=== PATIENT | male | born 1950 | race African-American/Black ===

== ENCOUNTER 2024-04-04 11:58 | Inpatient (IN) ==
[2024-04-04] MEDS: ALBUT/IPRATROP 3MG/0.5MG NEB 3 ML VIAL INH STA (13:04)
[2024-04-04 13:26] LABS: Hemoglobin 10.4 g/dl (14.0-18.0); Mean Corpuscular Hemoglobin 32.7 pg (25.0-34.0); Mean Corpuscular Hgb Conc 32.5 g/dL (32.0-36.0); Mean Corpuscular Volume 100.6 fL (80.0-100.0); Mean Platelet Volume 10.8 fL (9.4-12.4); Platelet Count 130 K/uL (130-400); RDW Coefficient of Variation 12.7 % (11.5-14.5); RDW Standard Deviation 47.2 fL (36.4-46.3); Red Blood Count 3.18 M/uL (4.70-6.10)
[2024-04-04 13:31] LABS: Albumin Globulin Ratio 0.7 (0.9-2); BUN Creatinine Ratio 22.9 (10-20); Bilirubin,Total 0.6 mg/dl (0.2-1.0); Calcium 8.9 mg/dl (8.6-10.3); Creatinine Clr Calc Pharmacy 55.7 ml/min; Est GFR (African American) 80.7 ml/min; Est GFR (Non-African American) 69.6 ml/min; Globulin 4.2 gm/dl (2.5-4.0); Potassium 3.5 mmol/L (3.5-5.1); Total Protein 7.2 gm/dl (6.0-8.3)
[2024-04-04 13:35] LABS: Troponin I High Sensitivity 4.2 pg/ml (0-20)
[2024-04-04 13:40] LABS: INR 1.4 (0.9-1.1); Partial Thromboplastin Time 26 Seconds (21-31); Prothrombin Time 14.6 Seconds (9.0-12.0)
[2024-04-04] MEDS: OPTIRAY 320 125ml IV ONE (13:49)
--- NOTE | 2024-04-04 14:04 | Emergency Department Note ---
Impression & Plan LLL pneumonia, Hypoxia ED Provider Note Provider: Tamir Gómez MD DATE OF SERVICE: 04/04/2024 CHIEF COMPLAINT: Oxygen issues HISTORY OF PRESENT ILLNESS: Patient is a 73-year-old gentleman reported history of smoking and some asthma presenting here today reporting that he sent from the half-way for evaluation. He denies significant complaints. Denies feeling that short of breath except with movement. Reports that he has been more fatigued however. Information of the present decayed for the last 3 days has been on Levaquin with concerns for possible bronchitis or pneumonia and that his oxygen level was 84% today. Started on oxygen which is new. No chest pain reported. Denies significant abdominal pain or nausea or vomiting. No trauma reported although he does states that he might of passed out about a week ago. No leg swelling reported. PAST MEDICAL HISTORY: As noted above MEDICATIONS: Reviewed medication list SOCIAL HISTORY: Inmate at [facility] correctional institution PHYSICAL EXAM: GENERAL: alert and oriented in no acute distress on stretcher guards at bedside on nasal cannula oxygen Head: normocephalic and atraumatic EYES: No injection, discharge or icterus. EOMI. NECK: Trachea midline. Supple. ENT: Mucous membranes pink and moist. LUNGS: Airway patent. No retractions. Breath sounds clear anteriorly without significant wheezing appreciable HEART: Regular rate and rhythm. No chest wall tenderness ABDOMEN: Soft and non-tender, without guarding or rebound. SKIN: Acyanotic, warm, dry, without rashes EXTREMITIES: Without swelling, tenderness or deformity NEUROLOGICAL: No focal deficits. No aphasia. No facial droop or slurred speech. Normal strength and tone in the extremities. Sensation to gross touch normal. EK bpm sinus tachycardia. No PVC or PAC. No acute ST segment elevation or depression with a QTc of 416. CONTINUOUS CARDIAC MONITORING: was ordered and showed a heart rate of 90s-120s bpm in normal sinus rhythm to sinus tachycardia occasional PVC Patient's laboratory studies and imaging reviewed. Differential includes Reactive airway disease, pneumonia, pneumothorax, COPD, CHF, infections, cardiac ischemia, pulmonary embolism, musculoskeletal, gastrointestinal, as well as other pathologies. IMPRESSION/MEDICAL DECISION MAKING: Not significantly wheezy but given his history of reactive airway disease given a DuoNeb here. On 2 L of oxygen for supplementation. Has been on Levaquin for several days. Will exclude PE given his incarcerated status and lack of mobility. Blood work here with slight anemia of 10.4 with leukopenia of 2.1. No significant electrolyte abnormalities signs of renal dysfunction with normal troponin and EKG. Doubt ACS. Respiratory viral panel completed as well. Does report some fatigue. Benign abdomen on exam. No acute neurological deficits appreciable on exam. Chest x-ray and CT show what appeared to be a left lower lobe pneumonia. Given his hypoxia and lack of improvement on Levaquin, covered with Zosyn and believe further inpatient treatment is indicated. 2 L of IV fluid ordered but held additional to avoid fluid overload. Given his MRSA risk factors with incarceration, vancomycin ordered and discussed with the pharmacist. Advised him and half-way staff patient's need to be hospitalized given his hypoxia failing outpatient Levaquin. Hospitalist team was contacted. DIAGNOSIS: Hypoxia, left lower lobe pneumonia DISPOSITION: Hospitalist will evaluate Patient was agreeable with this plan. Past Med/Surg History Problem List (Updated 04/04/24 @ 15:21 by Bismark Jones MD) Asthma Bicytopenia Transaminitis Hypoxia (Acute) LLL pneumonia (Acute) Social History Smoking Status: Former smoker Tobacco Type: Cigarettes Preferred Language: Rwandan Feels Safe at Home: Yes Allergies Allergies Allergy/AdvReac Type Severity Reaction Status Date / Time erythromycin base Allergy Unknown Unknown Verified 04/04/24 15:06 OC SPRAY AdvReac Unknown USE OF OC Uncoded 04/04/24 15:06 SPRAY IS CONTRAINDICATED Home Meds Home Medications Medication Instructions Recorded Confirmed albuterol sulfate 90 mcg/actuation 2 puff inhalation QID PRN 04/04/24 04/04/24 aerosol inhaler Shortness Of Breath ciclesonide 160 mcg/actuation 1 puff inhalation BID 04/04/24 04/04/24 aerosol inhaler (Alvesco) levofloxacin 750 mg tablet 750 mg PO DAILY 04/04/24 04/04/24 lisinopril 5 mg tablet 5 mg PO DAILY 04/04/24 04/04/24 rosuvastatin 10 mg tablet 10 mg PO DAILY 04/04/24 04/04/24 Results & Data (ED) Vital Signs Vital Signs - 24 hr 04/04/24 12:06 04/04/24 12:04/04/24 12:20 Temperature 37.3 C Temperature Source Oral Pulse Rate 111 H 109 H Pulse Rate [Right Finger] Pulse Rhythm Regular Pulse Strength Normal Respiratory Rate 20 Respiratory Effort / Characteristics Non-Labored Spontaneous Respiratory Depth Normal Respiratory Pattern Regular Blood Pressure 121/101 H Blood Pressure [Right Arm] Blood Pressure Mean 107 Blood Pressure Mean [Right Arm] Blood Pressure Position Sitting Pulse Oximetry 86 L 96 Oxygen Delivery Method Room Air Nasal Cannula Oxygen Flow Rate 4 Sepsis Recent Fever Within 48 Hours No Sepsis New/Unexplained Change in Mental Status No Sepsis Action Taken by Nursing No Action Required 04/04/24 12:54 04/04/24 14:08 Temperature Temperature Source Pulse Rate 98 H Pulse Rate [Right Finger] 98 H Pulse Rhythm Pulse Strength Respiratory Rate 20 Respiratory Effort / Characteristics Respiratory Depth Respiratory Pattern Blood Pressure Blood Pressure [Right Arm] 132/78 Blood Pressure Mean Blood Pressure Mean [Right Arm] 96 Blood Pressure Position Pulse Oximetry 97 Oxygen Delivery Method Nasal Cannula Nasal Cannula Oxygen Flow Rate 2 4 Sepsis Recent Fever Within 48 Hours Sepsis New/Unexplained Change in Mental Status Sepsis Action Taken by Nursing Laboratory Data 04/04/24 12:11 04/04/24 12:11 Lab Results 04/04/24 04/04/24 04/04/24 Range/Units 12:11 13:05 15:39 WBC 2.10 L (4.8-10.8) K/ul RBC 3.18 L (4.70-6.10) M/uL Hgb 10.4 L (14.0-18.0) g/dl Hct 32.0 L (42.0-52.0) % MCV 100.6 H (80.0-100.0) fL MCH 32.7 (25.0-34.0) pg MCHC 32.5 (32.0-36.0) g/dL RDW Std Deviation 47.2 H (36.4-46.3) fL RDW Coeff of January 12.7 (11.5-14.5) % Plt Count 130 (130-400) K/uL MPV 10.8 (9.4-12.4) fL Immature Gran % (Auto) 0.5 % Neut % (Auto) 51.8 % Lymph % (Auto) 42.4 % [place] % (Auto) 4.8 % Eos % (Auto) 0.5 % Baso % (Auto) 0.0 % Neut # (Auto) 1.09 L (1.40-6.50) K/uL Lymph # (Auto) 0.89 L (1.20-3.40) K/uL [place] # (Auto) 0.10 L (0.11-0.59) K/uL Eos # (Auto) 0.01 (0.00-0.50) K/uL Baso # (Auto) 0.00 (0.00-0.20) K/uL Immature Gran # (Auto) 0.01 (0.01-0.20) K/uL PT 14.6 H (9.0-12.0) Seconds INR 1.4 H (0.9-1.1) APTT 26 (21-31) Seconds PTT Ratio 1.0 Sodium 138 (136-145) mmol/L Potassium 3.5 (3.5-5.1) mmol/L Chloride 98 (98-107) mmol/L Carbon Dioxide 31 (21-32) mmol/L Anion Gap 9 (3-11) BUN 24 H (6-23) mg/dl Creatinine 1.05 (0.6-1.4) mg/dl Est Cr Clr Drug Dosing 55.7 ml/min Est GFR ( Amer) 80.7 ml/min Est GFR (Non-Af Amer) 69.6 ml/min BUN/Creatinine Ratio 22.9 H (10-20) Glucose 137 H (70-99(Fasting)) mg/dl Lactate 1.6 (0.4-2.0) mmol/L Calcium 8.9 (8.6-10.3) mg/dl Magnesium 2.0 (1.7-2.4) mg/dl Total Bilirubin 0.6 (0.2-1.0) mg/dl AST 50 H (13-39) U/L ALT 53 H (7-52) U/L Alkaline Phosphatase 89 (34-104) U/L Troponin I High Sens 4.2 (0-20) pg/ml C-Reactive Protein 28.00 H (0-0.5) mg/dl Total Protein 7.2 (6.0-8.3) gm/dl Albumin 3.0 L (3.4-5.0) gm/dl Globulin 4.2 H (2.5-4.0) gm/dl Albumin/Globulin Ratio 0.7 L (0.9-2) Adenovirus (PCR) Not Detected (NotDetected) Anaplasma Smear See Comment Babesia Smear See Comment B. pertussis DNA (PCR) Not Detected (NotDetected) B.parapertussis DNA PCR Not Detected (NotDetected) C. pneumoniae DNA (PCR) Not Detected (NotDetected) Coronavirus OC43 (PCR) Not Detected (NotDetected) Coronavirus HKU1 (PCR) Not Detected (NotDetected) Coronavirus 229E (PCR) Not Detected (NotDetected) SARS-CoV-2 (PCR) Not Detected (NotDetected) Coronavirus NL63 (PCR) Not Detected (NotDetected) Human Metapneumovir PCR Not Detected (NotDetected) Influenza Type A (PCR) Not Detected (NotDetected) Influenza Type B (PCR) Not Detected (NotDetected) M. pneumoniae (PCR) Not Detected (NotDetected) Parainfluenza 1 (PCR) Not Detected (NotDetected) Parainfluenza 2 (PCR) Not Detected (NotDetected) Parainfluenza 3 (PCR) Not Detected (NotDetected) Parainfluenza 4 (PCR) Not Detected (NotDetected) RSV (PCR) Not Detected (NotDetected) Entero/Rhino (PCR) Not Detected (NotDetected) Administered Medications Vancomycin HCl 1,500 mg/ (Sodium Chloride) 530 mls @ 200 mls/hr IV NOW ONE Stop: 04/04/24 17:15 Last Admin: 04/04/24 15:47 Dose: 200 mls/hr Documented By: ALEYDA Discontinued Medications Albuterol (Albut/Ipratrop 3mg/0.5mg Neb 3 Ml Vial) 3 ml INH NOW STA Stop: 04/04/24 12:55 Last Admin: 04/04/24 13:04 Dose: 3 ml Documented By: MNEwa Piperacillin Sod/Tazobactam Sod (Zosyn) 4.5 gm in 100 mls @ 200 mls/hr IV NOW ONE Stop: 04/04/24 14:33 Last Infusion: 04/04/24 16:42 Dose: Infused Documented By: Admin: 04/04/24 15:47 Dose: 200 mls/hr Documented By: ALEYDA Ioversol (Optiray 320 125ml) 112 ml IV ONCE ONE Stop: 04/04/24 13:49 Last Admin: 04/04/24 13:49 Dose: 112 ml Documented By: VITO Imaging Data Radiologist's Impression: Chest X-Ray 04/04/24 12:54 SINGLE VIEW CHEST CLINICAL HISTORY: Dyspnea. Hypoxia. FINDINGS: An AP, portable, upright chest radiograph is compared to study dated 01/23/2024. The heart is enlarged noting atherosclerotic calcification of the thoracic aorta. The pulmonary vasculature is none congestive. Airspace consolidation is seen at the left lung base. There is atelectasis at the right lung base. There is a small left pleural effusion. No pneumothorax is seen. The skeletal structures are osteopenic. The bony thorax is grossly intact. Arthritic change is seen in the shoulders. IMPRESSION: 1. Left basilar consolidation his typical for pneumonia/aspiration pneumonitis. Clinical correlation required and radiographic follow-up to resolution is recommended. 2. Cardiomegaly without radiographic evidence of congestive failure. 3. Small left pleural effusion. ACT 112: Negative or not required by law. Electronically signed by: Matthew Dillard M.D. 04/04/2024 2:02 PM Chest CTA 04/04/24 12:55 CT angio chest PE protocol CT DOSE: 698.83 mGy.cm HISTORY: 73 years-old Male with PE, hypoxia, tachy, prisoner. Acute shortness of breath TECHNIQUE: Multiple CTA images of the chest were obtained after the intravenous administration of Optiray. Coronal and sagittal MIPS were obtained from the axial data set and were submitted for review. All measurements were obtained according to NASCET criteria. A dose lowering technique was utilized adhering to the principles of ALARA. COMPARISON: Chest radiograph of same day FINDINGS: CTA: The heart is normal in size without pericardial effusion. Extensive coronary artery calcifications. Unremarkable thoracic aorta. No pulmonary emboli identified. CT CHEST: Thyroid goiter with superior mediastinal extension measuring up to 2.8 cm. Borderline enlarged mediastinal and hilar lymph nodes. Trace right and small left pleural effusions. No pneumothorax. Emphysema. Dense left lower lobe airspace consolidation with less pronounced groundglass and consolidative left upper lobe opacities. No acute upper abdominal abnormality. No acute fracture. IMPRESSION: 1. No pulmonary emboli identified. 2. Left lung pneumonia is most pronounced throughout the left lower lobe. 3. Trace right and small left pleural effusions. 4. Mild mediastinal and hilar lymphadenopathy. ACT 112: Negative or not required by law. The above report was generated using voice recognition software. It may contain grammatical, syntax or spelling errors. Electronically signed by: Darrel Herndon M.D. 04/04/2024 2:44 PM Discharge Plan Visit Data Chief Complaint: Shortness of Breath/Dyspnea Stated Complaint: SOB on exertion ED Provider: Tamir Gómez Discharge Problem: LLL pneumonia, Hypoxia Patient Disposition: Being Evaluated by Hospitalist Forms Stand Alone Forms: My [facility] Prescriptions Prescriptions: No Action albuterol sulfate 90 mcg/actuation Hfa Aerosol Inhaler 2 puff INHALATION QID PRN (Reason: Shortness Of Breath) rosuvastatin 10 mg Tablet 10 mg PO DAILY lisinopril 5 mg Tablet 5 mg PO DAILY levofloxacin 750 mg Tablet 750 mg PO DAILY Rx Instructions: LAST DOSE TO BE 04/08/24 Alvesco 160 mcg/actuation Hfa Aerosol Inhaler 1 puff INHALATION BID Referrals Referrals: Dahiana NATION [Primary Care Provider] - Discharge Problem: LLL pneumonia Qualifiers: Pneumonia type: due to unspecified organism Qualified Code(s): J18.9 - Pneumonia, unspecified organism
--- NOTE | 2024-04-04 14:04 | XRay Report ---
SINGLE VIEW CHEST CLINICAL HISTORY: Dyspnea. Hypoxia. FINDINGS: An AP, portable, upright chest radiograph is compared to study dated 01/23/2024. The heart i s enlarged noting atherosclerotic calcification of the thoracic aorta. The pulmonary vasculature is n one congestive. Airspace consolidation is seen at the left lung base. There is atelectasis at the rig ht lung base. There is a small left pleural effusion. No pneumothorax is seen. The skeletal structure s are osteopenic. The bony thorax is grossly intact. Arthritic change is seen in the shoulders. IMPRESSION: 1. Left basilar consolidation his typical for pneumonia/aspiration pneumonitis. Clinical correlation required and radiographic follow-up to resolution is recommended. 2. Cardiomegaly without radiographic evidence of congestive failure. 3. Small left pleural effusion. ACT 112: Negative or not required by law. Electronically signed by: Matthew Dillard M.D. 04/04/2024 2:02 PM
[2024-04-04 14:10] LABS: Adenovirus PCR Not Detected (NotDetected); Bordetella parapertussis PCR Not Detected (NotDetected); Bordetella pertussis PCR Not Detected (NotDetected); Chlamydia pneumoniae PCR Not Detected (NotDetected); Coronavirus 229E PCR Not Detected (NotDetected); Coronavirus CoV-2 (COVID19)PCR Not Detected (NotDetected); Coronavirus HKU1 PCR Not Detected (NotDetected); Coronavirus NL63 PCR Not Detected (NotDetected); Coronavirus OC43PCR Not Detected (NotDetected); Human Metapneumovirus PCR Not Detected (NotDetected); Influenza A PCR Not Detected (NotDetected); Influenza B PCR Not Detected (NotDetected); Mycoplasma pneumoniae PCR Not Detected (NotDetected); Parainfluenza Virus 1 PCR Not Detected (NotDetected); Parainfluenza Virus 2 PCR Not Detected (NotDetected); Parainfluenza Virus 3 PCR Not Detected (NotDetected); Parainfluenza Virus 4 PCR Not Detected (NotDetected); Respiratory Syncytial VirusPCR Not Detected (NotDetected); Rhinovirus/Enterovirus PCR Not Detected (NotDetected)
[2024-04-04 14:24] LABS: Eosinophils # (auto) 0.01 K/uL (0.00-0.50); Eosinophils % (auto) 0.5 %; Immature Granulocytes # (auto) 0.01 K/uL (0.01-0.20); Immature Granulocytes % (auto) 0.5 %; Lymphocytes # (auto) 0.89 K/uL (1.20-3.40); Lymphocytes % (auto) 42.4 %; Monocytes % (auto) 4.8 %; Neutrophils # (auto) 1.09 K/uL (1.40-6.50); Neutrophils % (auto) 51.8 %
[2024-04-04] MEDS ORDERED: VANCOMYCIN CONSULT ACTIVE PRN ×2 (14:37→20:36)
--- NOTE | 2024-04-04 14:46 | CT Scan Report ---
CT angio chest PE protocol CT DOSE: 698.83 mGy.cm HISTORY: 73 years-old Male with PE, hypoxia, tachy, prisoner. Acute shortness of breath TECHNIQUE: Multiple CTA images of the chest were obtained after the intravenous administration of Opt iray. Coronal and sagittal MIPS were obtained from the axial data set and were submitted for review. All measurements were obtained according to NASCET criteria. A dose lowering technique was utilized adhering to the principles of ALARA. COMPARISON: Chest radiograph of same day FINDINGS: CTA: The heart is normal in size without pericardial effusion. Extensive coronary artery calcifications. U nremarkable thoracic aorta. No pulmonary emboli identified. CT CHEST: Thyroid goiter with superior mediastinal extension measuring up to 2.8 cm. Borderline enlarged medias tinal and hilar lymph nodes. Trace right and small left pleural effusions. No pneumothorax. Emphysema . Dense left lower lobe airspace consolidation with less pronounced groundglass and consolidative lef t upper lobe opacities. No acute upper abdominal abnormality. No acute fracture. IMPRESSION: 1. No pulmonary emboli identified. 2. Left lung pneumonia is most pronounced throughout the left lower lobe. 3. Trace right and small left pleural effusions. 4. Mild mediastinal and hilar lymphadenopathy. ACT 112: Negative or not required by law. The above report was generated using voice recognition software. It may contain grammatical, syntax o r spelling errors. Electronically signed by: Darrel Herndon M.D. 04/04/2024 2:44 PM
--- NOTE | 2024-04-04 14:55 | History & Physical Report ---
Date of Service April 04, 2024 Assessment & Plan (1) LLL pneumonia: Plan: Left lower lobe pneumonia Chest x-ray with left lower lobe consolidation, trace effusion CTA: No pulmonary emboli, left lung pneumonia redemonstrated. Trace right and small left pleural effusions. No pulmonary edema. Mild mediastinal and hilar lymphadenopathy DDx includes aspiration pneumonia, community-acquired pneumonia Was on Levaquin last 3 days as outpatient without improvement. Given Zosyn/vancomycin in the ER Transition to cefepime/Flagyl/vancomycin on admission. If MRSA nares returned negative may discontinue vancomycin Sputum culture ordered Blood cultures pending (2) Transaminitis: Plan: Transaminitis New from prior. Prior record review notes a history of C virus in 2015. Patient reports that he did not require treatment for this and thinks it went away. Denies history of cirrhosis Repeat hepatitis serology pending Tick panel pending as above. If clinical suspicion increases, may add empiric doxy; however low risk for tick exposure and is at SCI. - Statin held (3) Bicytopenia: Plan: Bicytopenia Also with leukopenia, mildly worsened anemia. Platelet count normal. Absolute neutrophil count 1.09, leukocyte count 0.89 Tick serology and Anaplasma added. Respiratory bio fire is negative HIV/hepatitis panel pending Denies bleeding/rash. Denies history of bicytopenia/anemia (4) Asthma: Plan: Hx asthma No wheezing at time of bedside exam. Patient denies recent wheezing and feels his asthma has been well-controlled Continue Alvesco/formulary equivalent DuoNebs as needed Steroids not currently indicated Plan DVT prophylaxis: Lovenox Disposition: Medical/surgical CODE STATUS: Full code Diet: Heart healthy History of Present Illness Primary Care Provider: RIOS Talbot Silvia Kaiser is a 73-year-old male with past medical history of hep C, moderate persistent asthma, hyperlipidemia, allergic rhinitis, hypertension, CKD, adjustment disorder with depression who presents with worsened shortness of breath and hypoxia. Outpatient med review her SCI: Alvesco twice daily, lisinopril 5 mg daily, rosuvastatin 10 mg daily, albuterol as needed. Presents to the ER with wheezing, shortness of breath, and increased fatigue over the last week. Has been on levofloxacin x 3 days but continues to feel poorly and was hypoxic to 84% at the present today. No prior oxygen requirement. Patient is recommended for admission for community-acquired pneumonia with increased risk of MRSA due to incarceration and failure to improve on outpatient Levaquin. Pt reports tired, but OK. [facility] referred for hypoxia. No fevers or chills. No night sweats +cough intermittently. Productive initially for clear pghlem, has not been productive last day or two No wheezing Feels his asthma is actually 'doing OK.' No abdominal pain. No diarrhea/constipation. Appetite poor, has some trouble with [employer] food. No aspiration events to his knowledge. Denies history of liver problems, but thinks he had a history of hepatitis 'I beat it'. Thinks this was back in 1991. No history of cirrhosis. Not sure how he was exposed. No history of cancer. Denies history of blood disorders, strokes, heart attacks, blood clots. NKDA. thinks he allergic to some antibiotic but no rash, difficult breathing. Does not remember the name Medical History: Reviewed Medications: Reviewed Surgical History: Reviewed Family history: Reviewed Allergies: Reviewed Social History: Reviewed. Endorses marijuana use, Denies history of drug and needle use. Denies vaping/tobacco use. Quit smoking when [facility] stopped selling cigarettes Code Status: Full Code Allergies Allergy/AdvReac Type Severity Reaction Status Date / Time erythromycin base Allergy Unknown Unknown Verified 04/04/24 15:06 OC SPRAY AdvReac Unknown USE OF OC Uncoded 04/04/24 15:06 SPRAY IS CONTRAINDICATED Home Medications Medication Instructions Recorded Confirmed Type albuterol sulfate 90 mcg/actuation 2 puff inhalation QID PRN 04/04/24 04/04/24 History aerosol inhaler Shortness Of Breath ciclesonide 160 mcg/actuation 1 puff inhalation BID 04/04/24 04/04/24 History aerosol inhaler (Alvesco) levofloxacin 750 mg tablet 750 mg PO DAILY 04/04/24 04/04/24 History lisinopril 5 mg tablet 5 mg PO DAILY 04/04/24 04/04/24 History rosuvastatin 10 mg tablet 10 mg PO DAILY 04/04/24 04/04/24 History Past Med/Surg History Problem List (Updated 04/04/24 @ 15:21 by Bismark Jones MD) Asthma Bicytopenia Transaminitis Hypoxia (Acute) LLL pneumonia (Acute) Social History Smoking Status: Former smoker Tobacco Type: Cigarettes Preferred Language: Angolan Feels Safe at Home: Yes Physical Exam Physical Exam: General: A&Ox3. NAD. Cooperative. HEENT: Atraumatic, normocephalic. Vision/hearing intact. Poor dentition. PERLAA Pulm: LLL crackles/coarse. No wheezing. Symmetrical chest rise. No increased work of breathing. No respiratory distress. Cardiac: RRR, -mrg. Radial pulses intact and symmetrical. Abdominal: Nontender, nondistended, soft. BS present. Ext: warm, dry. Moves all extremities equally. Sensationto soft touch intact in hands and feet. Radiation Therapy Technologist, ankle doriflexion/plantarflexion 5/5 bilat. Results & Data Results & Data Vital Signs (Past 12 Hours) Vital Signs Temp Pulse Pulse Resp BP BP Pulse Ox 04/04/24 14:08 98 H 20 132/78 04/04/24 12:54 98 H 97 04/04/24 12:20 96 04/04/24 12:09 37.3 C 109 H 20 121/101 H 86 L 04/04/24 12:06 111 H O2 Del Method O2 Flow Rate 04/04/24 14:08 Nasal Cannula 4 04/04/24 12:54 Nasal Cannula 2 04/04/24 12:20 Nasal Cannula 4 04/04/24 12:09 Room Air 04/04/24 12:06 PG Care Time/CCT Total # of Minutes Spent Total Time Spent with Patient: Total time spent is greater than 50% in coordination of care (as documented) at patient's floor/unit and/or counseling patient: Coding Level of Care Code 58077 INT INP/OBS CARE 3/75MIN Diagnoses LLL pneumonia J18.9 Pneumonia type: due to unspecified organism Transaminitis R74.01 Bicytopenia D75.89 Asthma J45.909 (1) LLL pneumonia Pneumonia type: due to unspecified organism Qualified Code(s): J18.9 - Pneumonia, unspecified organism
[2024-04-04] MEDS: VANCOMYCIN HCL 1,500 MG in SODIUM CHLORIDE 0.9% 500 ML IV ONE (15:47)
[2024-04-04] MEDS: PIPERACILLIN/TAZOBACTAM 4.5 GM/100 ML BAG IV ONE (15:47)
--- NOTE | 2024-04-04 16:02 | Electrocardiogram Report ---
Test Reason : Blood Pressure : / mmHG Vent. Rate : 110 BPM Atrial Rate : 110 BPM P-R Int : 122 ms QRS Dur : 092 ms QT Int : 308 ms P-R-T Axes : 044 000 068 degrees QTc Int : 416 ms Sinus tachycardia Otherwise normal ECG When compared with ECG of 23-JAN-2024 10:08, No significant change was found Confirmed by Karthik El ([id number]) on 04/04/2024 4:01:56 PM Referred By: [facility] Confirmed By:Vega El
[2024-04-04 17:08] LABS: HIV 4th Gen(HIV 1,2 AB+p24 Ag Negative (Negative)
[2024-04-04 17:15] LABS: HepB Surface Ag with confirm Negative (Negative); Lyme Screen Rflx Confirmation Negative (Negative)
[2024-04-04 17:19] LABS: HepC Ab Rflx HepCQuant RNA Negative (Negative)
[2024-04-04 17:51] LABS: Procalcitonin 0.57 ng/ml (0-0.5)
[2024-04-04] MEDS ORDERED: ACETAMINOPHEN 325 MG TAB PO PRN (20:36)
[2024-04-04] MEDS ORDERED: ALBUTEROL HFA 8 GM INHALER INH PRN (20:36)
[2024-04-04] MEDS: metroNIDAZOLE 500 MG/100 ML BAG IV SCH (21:45)
[2024-04-04] MEDS: CEFEPIME 2,000 MG in SYRINGE 0 ML IV SCH (21:45)
[2024-04-04] MEDS: ENOXAPARIN INJ 40 MG/0.4 ML SYR SQ SCH (21:45)
[2024-04-05] MEDS ORDERED: VANCOMYCIN HCL 1,250 MG in SODIUM CHLORIDE 0.9% 500 ML IV SCH (03:15)
[2024-04-05 06:04] LABS: Appearance Urine Clear (Clear); Bacteria Urine Automated None Seen (None Seen); Bilirubin Urine Negative (Negative); Blood Urine Negative (Negative); Cast Urine Automated 0-2 /lpf (0-2); Color Urine Yellow; Glucose Urine UA Negative (Negative); Ketones Urine Trace (Negative); Leukocyte Esterase Urine Negative (Negative); Nitrite Urine Negative (Negative); Protein Urine 1+ (Negative); RBC Urine Automated 0-2 /hpf (0-2); Specific Gravity Urine > 1.045 (1.000-1.030); Urobilinogen Urine Negative (Negative); WBC Urine Automated 0-5 /hpf (0-5); pH Urine 5.5 (4.5-7.5)
[2024-04-05 07:13] LABS: Hematocrit (blood only) 29.1 % (42.0-52.0); Hemoglobin 9.6 g/dl (14.0-18.0); Mean Corpuscular Hemoglobin 33.2 pg (25.0-34.0); Mean Corpuscular Volume 100.7 fL (80.0-100.0); Platelet Count 126 K/uL (130-400); RDW Coefficient of Variation 12.8 % (11.5-14.5); Red Blood Count 2.89 M/uL (4.70-6.10); White Blood Count 2.08 K/ul (4.8-10.8)
[2024-04-05 07:15] LABS: Albumin Globulin Ratio 0.8 (0.9-2); Albumin Level 2.8 gm/dl (3.4-5.0); BUN Creatinine Ratio 19.7 (10-20); Bilirubin,Total 0.5 mg/dl (0.2-1.0); C Reactive Protein 21.22 mg/dl (0-0.5); Calcium 8.6 mg/dl (8.6-10.3); Creatinine Clr Calc Pharmacy 47.9 ml/min; Est GFR (African American) 67.3 ml/min; Globulin 3.7 gm/dl (2.5-4.0); Potassium 3.8 mmol/L (3.5-5.1); Total Protein 6.5 gm/dl (6.0-8.3)
[2024-04-05] MEDS ORDERED: VANCOMYCIN HCL 1,000 MG in SODIUM CHLORIDE 0.9% 250 ML IV SCH (08:00)
--- NOTE | 2024-04-05 08:19 | Hospitalist Progress Note ---
Date of Service April 05, 2024 Assessment & Plan (1) LLL pneumonia: Plan: Left lower lobe pneumonia-pancytopenicneutropenia Chest x-ray with left lower lobe consolidation, trace effusion CTA: No pulmonary emboli, left lung pneumonia re-demonstrated. Trace right and small left pleural effusions. No pulmonary edema. Mild mediastinal and hilar lymphadenopathy Was on Levaquin x 3 days prior to presentation. Given Zosyn/vancomycin in the ER Transition to Cefepime/Flagyl MRSA nares returned negative -> discontinue vancomycin Sputum culture ordered urine Legionella antigen sent Blood cultures pending Respiratory biofire negative, Tic borne screen negative, Certainly on nontypical presentation with the patient being hypoxic without a lot of coughing and no preceding symptoms other than syncope Is at risk for malignancy given his smoking history although does not look classic for malignancy Will follow for resolution likely repeat imaging will be required (2) Transaminitis: Plan: Transaminitis Prior record review notes a history of C virus in 2014. Patient reports that he did not require treatment for this and thinks it went away. Denies history of cirrhosis Repeat hepatitis serology pending - Statin held (3) Asthma: Plan: Hx asthma stable no wheezing at this time Continue Alvesco/formulary equivalent DuoNebs as needed Steroids not currently indicated Plan DVT prophylaxis: Lovenox CODE STATUS: Full code Admission and Anticipated Discharge Date Admission Date: April 04, 2024 Subjective pt is feeling better, little cough, former smoker Pt states he has no symptoms until he was walking and fell over. Has imaging suggestive of LLL pneumonia, and clinical exam with absent breath sounds Physical Exam Physical Exam: Patient awake alert no distress requiring oxygen supplementation Card exam is regular without murmurs Lung exam with decreased breath sounds and dullness at the left base no egophony Extremities are without edema Results & Data Results & Data Vital Signs (Past 12 Hours) Vital Signs Temp Pulse Resp BP Pulse Ox O2 Del Method O2 Flow Rate 04/05/24 07:37 Nasal Cannula 2 04/05/24 07:00 98.4 F 89 16 118/69 95 Room Air 04/04/24 20:30 Nasal Cannula 2 04/04/24 20:30 98.4 F 107 H 18 151/73 H 96 Nasal Cannula 2 Laboratory Results Reviewed CBC reviewed chemistry PG Care Time/CCT Total # of Minutes Spent Total Time Spent with Patient: Total time spent is greater than 50% in coordination of care (as documented) at patient's floor/unit and/or counseling patient: Coding Level of Care Code 74994 SUB INP/OBS CARE 350MIN Diagnoses LLL pneumonia J18.9 Pneumonia type: due to unspecified organism Transaminitis R74.01 Asthma J45.909 (1) LLL pneumonia Pneumonia type: due to unspecified organism Qualified Code(s): J18.9 - Pneumonia, unspecified organism
[2024-04-05 08:45] LABS: Basophils # (auto) 0.01 K/uL (0.00-0.20); Basophils % (auto) 0.5 %; Eosinophils # (auto) 0.01 K/uL (0.00-0.50); Eosinophils % (auto) 0.5 %; Immature Granulocytes # (auto) 0.02 K/uL (0.01-0.20); Lymphocytes # (auto) 1.15 K/uL (1.20-3.40); Lymphocytes % (auto) 55.3 %; Monocytes # (auto) 0.08 K/uL (0.11-0.59); Monocytes % (auto) 3.8 %; Neutrophils # (auto) 0.81 K/uL (1.40-6.50); Neutrophils % (auto) 38.9 %
[2024-04-05] MEDS: FLUTICASONE FUROATE 200MCG 14 PUFFS/INHALER INH SCH (09:18)
[2024-04-05] MEDS: lisinopril 5 MG TAB PO SCH (09:19)
[2024-04-06 08:21] LABS: Hematocrit (blood only) 26.7 % (42.0-52.0); Hemoglobin 8.6 g/dl (14.0-18.0); Mean Corpuscular Hemoglobin 32.7 pg (25.0-34.0); Mean Corpuscular Hgb Conc 32.2 g/dL (32.0-36.0); Mean Corpuscular Volume 101.5 fL (80.0-100.0); Mean Platelet Volume 11.3 fL (9.4-12.4); Platelet Count 146 K/uL (130-400); RDW Coefficient of Variation 12.6 % (11.5-14.5); RDW Standard Deviation 47.4 fL (36.4-46.3); Red Blood Count 2.63 M/uL (4.70-6.10); White Blood Count 1.86 K/ul (4.8-10.8)
[2024-04-06 08:46] LABS: Basophils # (auto) 0.01 K/uL (0.00-0.20); Basophils % (auto) 0.5 %; Eosinophils # (auto) 0.01 K/uL (0.00-0.50); Eosinophils % (auto) 0.5 %; Immature Granulocytes # (auto) 0.01 K/uL (0.01-0.20); Immature Granulocytes % (auto) 0.5 %; Lymphocytes # (auto) 0.98 K/uL (1.20-3.40); Lymphocytes % (auto) 52.7 %; Monocytes # (auto) 0.09 K/uL (0.11-0.59); Monocytes % (auto) 4.8 %; Neutrophils # (auto) 0.76 K/uL (1.40-6.50)
[2024-04-06 09:01] LABS: Alanine Aminotransferase 36 U/L (7-52); Albumin Globulin Ratio 0.7 (0.9-2); Albumin Level 2.6 gm/dl (3.4-5.0); Alkaline Phosphatase 72 U/L (34-104); Anion Gap 4 (3-11); Aspartate Aminotransferase 32 U/L (13-39); BUN Creatinine Ratio 20.8 (10-20); Bilirubin,Total 0.5 mg/dl (0.2-1.0); Blood Urea Nitrogen 25 mg/dl (6-23); Calcium 8.4 mg/dl (8.6-10.3); Carbon Dioxide 32 mmol/L (21-32); Chloride 103 mmol/L (98-107); Creatinine Clr Calc Pharmacy 48.7 ml/min; Est GFR (African American) 68.6 ml/min; Est GFR (Non-African American) 59.2 ml/min; Globulin 3.5 gm/dl (2.5-4.0); Glucose 110 mg/dl (70-99(Fasting)); Potassium 3.5 mmol/L (3.5-5.1); Sodium 139 mmol/L (136-145); Total Protein 6.1 gm/dl (6.0-8.3)
[2024-04-06 09:16] LABS: Thyroid Stimulating Hormone 2.796 uIu/ml (0.300-4.500)
[2024-04-06 10:02] LABS: Iron 85 mcg/dl (35-175); Unsaturated Iron Binding Cap < 55 mcg/dl (155-355)
[2024-04-06 10:45] LABS: Folate (Folic Acid),Ser orPlas 15.77 ng/ml (>5.38)
--- NOTE | 2024-04-06 16:11 | Hospitalist Progress Note ---
Date of Service April 06, 2024 Assessment & Plan (1) LLL pneumonia: Plan: Left lower lobe pneumonia-pancytopenicneutropenia Chest x-ray with left lower lobe consolidation, trace effusion CTA: No pulmonary emboli, left lung pneumonia re-demonstrated. Trace right and small left pleural effusions. No pulmonary edema. Mild mediastinal and hilar lymphadenopathy Was on Levaquin x 3 days prior to presentation. Given Zosyn/vancomycin in the ER Transition to Cefepime/Flagyl MRSA nares returned negative -> discontinue vancomycin Sputum culture ordered urine Legionella antigen sent(pending) Blood cultures negative, sputum with few gram negatives seen Respiratory biofire negative, Tic borne screen negative, Certainly on nontypical presentation with the patient being hypoxic without a lot of coughing and no preceding symptoms other than syncope Is at risk for malignancy given his smoking history although does not look classic for malignancy Will follow for resolution likely repeat imaging will be required after dischar ge (2) Pancytopenia: Plan: Pt remains with all cell lines down, neutropenic did check B12,folate, tsh, no atypical cell seen maybe due to infection if it does not rebound may consider heme onc eval (3) Transaminitis: Plan: Transaminitis-resolved Prior record review notes a history of C virus in 2015. Patient reports that he did not require treatment for this and thinks it went away. Denies history of cirrhosis Repeat hepatitis serology pending - Statin held (4) Asthma: Plan: Hx asthma stable no wheezing at this time Continue Alvesco/formulary equivalent DuoNebs as needed Steroids not currently indicated Plan DVT prophylaxis: Lovenox CODE STATUS: Full code Admission and Anticipated Discharge Date Admission Date: April 04, 2024 Subjective pt continues to feel better, now on room air, former smoker Pt states he has no symptoms until he was walking and fell over. Has imaging and exam suggestive of LLL pneumonia likely if pneumonia and pancytopenia improve, he maybe able to return to custodial Physical Exam Physical Exam: Patient awake alert no distress requiring oxygen supplementation Card exam is regular without murmurs Lung exam with decreased breath sounds and dullness at the left base Extremities are without edema Results & Data Results & Data Vital Signs (Past 12 Hours) Vital Signs Temp Pulse Resp BP Pulse Ox O2 Del Method O2 Flow Rate 04/06/24 15:45 18 93 Room Air 04/06/24 15:24 97.9 F 96 H 18 148/72 H 92 Room Air 04/06/24 08:07 Nasal Cannula 1 04/06/24 07:54 97.7 F 88 18 137/74 95 Nasal Cannula 1 Laboratory Results review cbc iron, B12, folate, thyroid chemistry PG Care Time/CCT Total # of Minutes Spent Total Time Spent with Patient: Total time spent is greater than 50% in coordination of care (as documented) at patient's floor/unit and/or counseling patient: Coding Level of Care Code 34603 SUB INP/OBS CARE 2/35MIN Diagnoses LLL pneumonia J18.9 Pneumonia type: due to unspecified organism Pancytopenia D61.818 Transaminitis R74.01 Asthma J45.909 (1) LLL pneumonia Pneumonia type: due to unspecified organism Qualified Code(s): J18.9 - Pneumonia, unspecified organism
[2024-04-07 06:54] LABS: Hematocrit (blood only) 25.3 % (42.0-52.0); Hemoglobin 8.2 g/dl (14.0-18.0); Mean Corpuscular Hemoglobin 32.8 pg (25.0-34.0); Mean Corpuscular Hgb Conc 32.4 g/dL (32.0-36.0); Mean Corpuscular Volume 101.2 fL (80.0-100.0); Mean Platelet Volume 10.9 fL (9.4-12.4); Platelet Count 153 K/uL (130-400); RDW Coefficient of Variation 12.5 % (11.5-14.5); RDW Standard Deviation 46.8 fL (36.4-46.3); White Blood Count 1.67 K/ul (4.8-10.8)
[2024-04-07 07:19] LABS: Albumin Globulin Ratio 0.8 (0.9-2); Albumin Level 2.7 gm/dl (3.4-5.0); BUN Creatinine Ratio 20.7 (10-20); Bilirubin,Total 0.5 mg/dl (0.2-1.0); Calcium 8.6 mg/dl (8.6-10.3); Creatinine Clr Calc Pharmacy 50.4 ml/min; Est GFR (African American) 71.5 ml/min; Est GFR (Non-African American) 61.7 ml/min; Globulin 3.6 gm/dl (2.5-4.0); Potassium 3.9 mmol/L (3.5-5.1); Total Protein 6.3 gm/dl (6.0-8.3)
[2024-04-07 08:43] LABS: Basophils # (auto) 0.02 K/uL (0.00-0.20); Basophils % (auto) 1.2 %; Eosinophils # (auto) 0.01 K/uL (0.00-0.50); Eosinophils % (auto) 0.6 %; Immature Granulocytes # (auto) 0.01 K/uL (0.01-0.20); Immature Granulocytes % (auto) 0.6 %; Lymphocytes # (auto) 0.88 K/uL (1.20-3.40); Lymphocytes % (auto) 52.7 %; Monocytes # (auto) 0.07 K/uL (0.11-0.59); Monocytes % (auto) 4.2 %; Neutrophils # (auto) 0.68 K/uL (1.40-6.50); Neutrophils % (auto) 40.7 %
[2024-04-07 14:47] LABS: Hepatitis A Antibody IgM NON-REACTIVE (NON-REACTIVE); Hepatitis B Core Antibody IgM NON-REACTIVE (NON-REACTIVE)
--- NOTE | 2024-04-07 16:47 | Oncology Consultation ---
Date of Consultation April 07, 2024 Assessment & Plan (1) Bicytopenia: reviewed the workup done to date. At this point my recommendation would be to consider doing a bone marrow biopsy given the moderate neutropenia, monocytopenia and macrocytic anemia. I am can concerned about underlying MDS. Bone marrow biopsy can be done while the patient is in the hospital. Will have further recommendations once we have the results of the bone marrow biopsy. Would like to set transfusion parameters. Transfuse if hemoglobin is less than 7 g/dL platelet count is less than 10,000/mcL. Plan Thank you for this interesting hematological consult. A total of 60 minutes was spent in counseling, coordination of care, review of prior records. History of Present Illness Reason for Consultation: Bicytopenia Attending Physician: Brandyn Lagos History of Present Illness the patient is a very pleasant 73-year-old male with a past history of asthma, hyperlipidemia, rhinitis, hypertension, CKD who initially presented to [facility] with shortness of breath and hypoxia. He was diagnosed with pneumonia, was treated with levofloxacin however continued to be hypoxic. He had an extensive workup done at [facility]. During this time he has been by [facility]open[facility] with moderate neutropenia with ANC between 1.5-1 as well as macrocytic anemia. Currently the patient is feeling better since admission, reports occasional cough. He has not been febrile over the last 24 hours. Allergies Allergy/AdvReac Type Severity Reaction Status Date / Time erythromycin base Allergy Unknown Unknown Verified 04/04/24 15:06 OC SPRAY AdvReac Unknown USE OF OC Uncoded 04/04/24 15:06 SPRAY IS CONTRAINDICATED Home Medications Medication Instructions Recorded Confirmed Type albuterol sulfate 90 mcg/actuation 2 puff inhalation QID PRN 04/04/24 04/04/24 History aerosol inhaler Shortness Of Breath ciclesonide 160 mcg/actuation 1 puff inhalation BID 04/04/24 04/04/24 History aerosol inhaler (Alvesco) levofloxacin 750 mg tablet 750 mg PO DAILY 04/04/24 04/04/24 History lisinopril 5 mg tablet 5 mg PO DAILY 04/04/24 04/04/24 History rosuvastatin 10 mg tablet 10 mg PO DAILY 04/04/24 04/04/24 History Patient History Social History Smoking Status: Former smoker Tobacco Type: Cigarettes Hx Alcohol Use: No Hx Substance Use: No Preferred Language: Swedish Communication Ability: Effective Final Assembly Inspector Required: No Beliefs That Will Affect Care: None Current Living Situation Comment: [facility] Feels Safe at Home: Yes Assistive Devices: None Review of Systems Review of Systems: Complete review of system was done pertinent positive mentioned in HPI Constitutional: as per Subjective / HPI Eyes: as per Subjective / HPI Ear, Nose, Mouth, Throat: as per Subjective / HPI Respiratory: as per Subjective / HPI Cardiovascular: as per Subjective / HPI Gastrointestinal: as per Subjective / HPI Genitourinary: + as per Subjective / HPI Musculoskeletal: as per Subjective / HPI Integumentary: as per Subjective / HPI Neurologic: as per Subjective / HPI Psychiatric: as per Subjective / HPI Endocrine: as per Subjective / HPI Hematologic / Lymphatic: as per Subjective / HPI Allergy / Immunological: as per Subjective / HPI Physical Exam Constitutional: WD/WN, vitals as above Eyes: PERRL, conjunctivae normal, anicteric sclerae ENMT: external ear and nose normal, oropharynx normal Neck: trachea midline, no thyromegaly Respiratory: normal respiratory effort, lungs clear to auscultation Cardiovascular: RRR, no murmur, no edema Gastrointestinal (Abdomen): normal bowel sounds, soft, nontender, no he patosplenomegaly Musculoskeletal: no cyanosis or clubbing, extremities motor strength 5/5 Skin: no rashes, warm and dry Neurologic: patellar DTR's 2+ bilat, sensation intact Results & Data Vital Signs (Past 12 Hours) Vital Signs Temp Pulse Resp BP BP Pulse Ox O2 Del Method 04/07/24 14:32 36.7 C 94 H 18 107/69 92 Room Air 04/07/24 07:01 36.6 C 80 16 113/69 92 Room Air
--- NOTE | 2024-04-07 23:58 | Hospitalist Progress Note ---
Date of Service April 07, 2024 Assessment & Plan (1) LLL pneumonia: Plan: Left lower lobe pneumonia-pancytopenicneutropenia Chest x-ray with left lower lobe consolidation, trace effusion CTA: No pulmonary emboli, left lung pneumonia re-demonstrated. Trace right and small left pleural effusions. No pulmonary edema. Mild mediastinal and hilar lymphadenopathy Was on Levaquin x 3 days prior to presentation. Given Zosyn/vancomycin in the ER Transition to Cefepime/Flagyl MRSA nares returned negative -> discontinue vancomycin Sputum culture ordered urine Legionella antigen sent(pending) Blood cultures negative, sputum with few gram negatives seen Respiratory biofire negative, Tic borne screen negative, Certainly on nontypical presentation with the patient being hypoxic without a lot of coughing and no preceding symptoms other than syncope Is at risk for malignancy given his smoking history although does not look classic for malignancy Will follow for resolution likely repeat imaging will be required after dischar ge (2) Pancytopenia: Plan: Pt remains with all cell lines down, neutropenic did check B12,folate, tsh, no atypical cell seen Did not rebound, plan for IR to do bone marrow biopsy on Wednesday. Order placed. (3) Transaminitis: Plan: Transaminitis-resolved Prior record review notes a history of C virus in 2014. Patient reports that he did not require treatment for this and thinks it went away. Denies history of cirrhosis Repeat hepatitis serology pending - Statin held (4) Asthma: Plan: Hx asthma stable no wheezing at this time Continue Alvesco/formulary equivalent DuoNebs as needed Steroids not currently indicated Plan DVT prophylaxis: Lovenox CODE STATUS: Full code Admission and Anticipated Discharge Date Admission Date: April 04, 2024 Subjective 73 yo male reports no new symptoms. Review of Systems Review of Systems: All systems reviewed & are unremarkable except as noted in HPI & below Physical Exam Physical Exam: Patient awake alert NAD NOut using accessory muscle to breath Extremities are without edema Results & Data Results & Data Vital Signs (Past 12 Hours) Vital Signs Temp Pulse Resp BP Pulse Ox O2 Del Method 04/07/24 20:53 36.5 C 88 16 118/75 94 Room Air 04/07/24 14:32 36.7 C 94 H 18 107/69 92 Room Air PG Care Time/CCT Total # of Minutes Spent Total Time Spent with Patient: Total time spent is greater than 50% in coordination of care (as documented) at patient's floor/unit and/or counseling patient: Coding Level of Care Code 06294 SUB INP/OBS CARE MIN Diagnoses LLL pneumonia J18.9 Pneumonia type: due to unspecified organism Pancytopenia D61.818 Transaminitis R74.01 Asthma J45.909 (1) LLL pneumonia Pneumonia type: due to unspecified organism Qualified Code(s): J18.9 - Pneumonia, unspecified organism
[2024-04-08 07:04] LABS: Hematocrit (blood only) 29.1 % (42.0-52.0); Hemoglobin 9.6 g/dl (14.0-18.0); Mean Corpuscular Hemoglobin 33.1 pg (25.0-34.0); Mean Corpuscular Volume 100.3 fL (80.0-100.0); Mean Platelet Volume 10.8 fL (9.4-12.4); Platelet Count 168 K/uL (130-400); RDW Coefficient of Variation 12.3 % (11.5-14.5); RDW Standard Deviation 45.2 fL (36.4-46.3); White Blood Count 2.38 K/ul (4.8-10.8)
[2024-04-08 07:15] LABS: BUN Creatinine Ratio 20.6 (10-20); Calcium 8.5 mg/dl (8.6-10.3); Creatinine Clr Calc Pharmacy 54.7 ml/min; Est GFR (African American) 78.8 ml/min
[2024-04-08 07:24] LABS: Basophils # (auto) 0.02 K/uL (0.00-0.20); Basophils % (auto) 0.8 %; Lymphocytes # (auto) 1.59 K/uL (1.20-3.40); Lymphocytes % (auto) 66.8 %; Monocytes # (auto) 0.09 K/uL (0.11-0.59); Monocytes % (auto) 3.8 %; Neutrophils # (auto) 0.68 K/uL (1.40-6.50); Neutrophils % (auto) 28.6 %; Ovalocytes 1+; Polychromasia 1+
[2024-04-08 19:12] LABS: Babesia microti DNA Not Detected (Not Detected)
--- NOTE | 2024-04-08 21:06 | Hospitalist Progress Note ---
Date of Service April 08, 2024 Assessment & Plan (1) LLL pneumonia: Plan: Left lower lobe pneumonia-pancytopenicneutropenia Chest x-ray with left lower lobe consolidation, trace effusion CTA: No pulmonary emboli, left lung pneumonia re-demonstrated. Trace right and small left pleural effusions. No pulmonary edema. Mild mediastinal and hilar lymphadenopathy Was on Levaquin x 3 days prior to presentation. Given Zosyn/vancomycin in the ER Transitioned to Cefepime/Flagyl MRSA nares returned negative -> discontinue vancomycin Sputum culture ordered: shara in sputum no antifungal treatment required. -urine Legionella antigen sent(pending) Blood cultures negative Respiratory biofire negative, Tic borne screen negative, Patient no longer hypoxic. Certainly on nontypical presentation with the patient being hypoxic without a lot of coughing and no preceding symptoms other than syncope Is at risk for malignancy given his smoking history although does not look classic for malignancy Will follow for resolution likely repeat imaging will be required after discharge (2) Pancytopenia: Plan: Pt remains with all cell lines down, neutropenic did check B12,folate, tsh, no atypical cell seen Consulted hematology Pancytopenia did not improve on 04/07, though it is finally showing improvement on 04/08 plan for IR to do bone marrow biopsy on Wednesday. Order placed. Patient on 04/08 wanted to forgo procedure, however will maintain order and revisit on Wednesday. this may be a moot point if pancytopenia continues to improve. (3) Transaminitis: Plan: Transaminitis-resolved Prior record review notes a history of C virus in 2014. Patient reports that he did not require treatment for this and thinks it went away. Denies history of cirrhosis Repeat hepatitis serology pending - Statin held (4) Asthma: Plan: Hx asthma stable no wheezing at this time Continue Alvesco/formulary equivalent DuoNebs as needed Steroids not currently indicated Plan DVT prophylaxis: Lovenox CODE STATUS: Full code Admission and Anticipated Discharge Date Admission Date: April 04, 2024 Subjective Patient reports feeling better. He has no new complaints. Review of Systems Review of Systems: All systems reviewed & are unremarkable except as noted in HPI & below Physical Exam Physical Exam: Patient awake alert NAD NOut using accessory muscle to breath Extremities are without edema Results & Data Results & Data Vital Signs (Past 12 Hours) Vital Signs Temp Pulse Resp BP Pulse Ox O2 Del Method 04/08/24 20:06 36.7 C 94 H 18 139/82 94 Room Air 04/08/24 16:10 106 H 95 Room Air 04/08/24 15:43 36.7 C 115 H 20 138/80 94 Room Air PG Care Time/CCT Total # of Minutes Spent Total Time Spent with Patient: Total time spent is greater than 50% in coordination of care (as documented) at patient's floor/unit and/or counseling patient: Coding Level of Care Code 07564 SUB INP/OBS CARE 2/35MIN Diagnoses LLL pneumonia J18.9 Pneumonia type: due to unspecified organism Pancytopenia D61.818 Transaminitis R74.01 Asthma J45.909 (1) LLL pneumonia Pneumonia type: due to unspecified organism Qualified Code(s): J18.9 - Pneumonia, unspecified organism
[2024-04-09 06:58] LABS: Hemoglobin 9.4 g/dl (14.0-18.0); Mean Corpuscular Hemoglobin 32.6 pg (25.0-34.0); Mean Corpuscular Hgb Conc 32.4 g/dL (32.0-36.0); Mean Corpuscular Volume 100.7 fL (80.0-100.0); Mean Platelet Volume 10.7 fL (9.4-12.4); Platelet Count 182 K/uL (130-400); RDW Coefficient of Variation 12.8 % (11.5-14.5); RDW Standard Deviation 47.3 fL (36.4-46.3); Red Blood Count 2.88 M/uL (4.70-6.10); White Blood Count 2.43 K/ul (4.8-10.8)
[2024-04-09 07:19] LABS: Calcium 8.2 mg/dl (8.6-10.3); Creatinine Clr Calc Pharmacy 53.2 ml/min; Est GFR (African American) 76.2 ml/min; Est GFR (Non-African American) 65.8 ml/min; Potassium 3.7 mmol/L (3.5-5.1)
[2024-04-09 07:52] LABS: Basophils # (auto) 0.01 K/uL (0.00-0.20); Basophils % (auto) 0.4 %; Eosinophils # (auto) 0.01 K/uL (0.00-0.50); Eosinophils % (auto) 0.4 %; Lymphocytes # (auto) 1.53 K/uL (1.20-3.40); Monocytes % (auto) 4.1 %; Neutrophils # (auto) 0.78 K/uL (1.40-6.50); Neutrophils % (auto) 32.1 %; Ovalocytes 1+
--- NOTE | 2024-04-09 08:57 | Hospitalist Progress Note ---
Date of Service April 09, 2024 Assessment & Plan (1) LLL pneumonia: Plan: Left lower lobe pneumonia-pancytopenicneutropenia Chest x-ray with left lower lobe consolidation, trace effusion CTA: No pulmonary emboli, left lung pneumonia re-demonstrated. Trace right and small left pleural effusions. No pulmonary edema. Mild mediastinal and hilar lymphadenopathy Was on Levaquin x 3 days prior to presentation. Given Zosyn/vancomycin in the ER Transitioned to Cefepime/Flagyl MRSA nares returned negative -> discontinue vancomycin LD 04/10 Sputum culture ordered: shara in sputum no antifungal treatment required. -urine Legionella antigen sent(pending) Blood cultures negative Respiratory biofire negative, Tic borne screen negative, Patient no longer hypoxic. Certainly on nontypical presentation with the patient being hypoxic without a lot of coughing and no preceding symptoms other than syncope Is at risk for malignancy given his smoking history although does not look classic for malignancy Will follow for resolution likely repeat imaging will be required after discharge (2) Pancytopenia: Plan: Pt remains with all cell lines down, neutropenic did check B12,folate, tsh, no atypical cell seen Consulted hematology Pancytopenia showing improvement but slowly plan for IR to do bone marrow biopsy on Wednesday. Order placed. (3) Transaminitis: Plan: Transaminitis-resolved Prior record review notes a history of C virus in 2014. Patient reports that he did not require treatment for this and thinks it went away. Denies history of cirrhosis Repeat hepatitis serology pending - Statin held (4) Asthma: Plan: Hx asthma stable no wheezing at this time Continue Alvesco/formulary equivalent DuoNebs as needed Steroids not currently indicated Plan DVT prophylaxis: Lovenox CODE STATUS: Full code Admission and Anticipated Discharge Date Admission Date: April 04, 2024 Subjective pt states he feels better states he does not want a bone marrow biopsy, understands he may have serious health issue but not interested in looking into it. Physical Exam Physical Exam: Patient awake alert no distress requiring oxygen supplementation Card exam is regular without murmurs Lung exam with decreased breath sounds and dullness at the left base Extremities are without edema Results & Data Results & Data Vital Signs (Past 12 Hours) Vital Signs Temp Pulse Resp BP Pulse Ox O2 Del Method 04/09/24 07:20 97.9 F 83 16 144/80 H 95 Room Air PG Care Time/CCT Total # of Minutes Spent Total Time Spent with Patient: Total time spent is greater than 50% in coordination of care (as documented) at patient's floor/unit and/or counseling patient: Coding Level of Care Code 42649 SUB INP/OBS CARE 2/35MIN Diagnoses LLL pneumonia J18.9 Pneumonia type: due to unspecified organism Pancytopenia D61.818 Transaminitis R74.01 Asthma J45.909 (1) LLL pneumonia Pneumonia type: due to unspecified organism Qualified Code(s): J18.9 - Pneumonia, unspecified organism
[2024-04-10 11:22] LABS: Hematocrit (blood only) 30.1 % (42.0-52.0); Hemoglobin 9.9 g/dl (14.0-18.0); Mean Corpuscular Hemoglobin 32.8 pg (25.0-34.0); Mean Corpuscular Hgb Conc 32.9 g/dL (32.0-36.0); Mean Corpuscular Volume 99.7 fL (80.0-100.0); Mean Platelet Volume 10.7 fL (9.4-12.4); Platelet Count 193 K/uL (130-400); RDW Coefficient of Variation 12.9 % (11.5-14.5); RDW Standard Deviation 46.8 fL (36.4-46.3); Red Blood Count 3.02 M/uL (4.70-6.10); White Blood Count 2.35 K/ul (4.8-10.8)
[2024-04-10 12:10] LABS: Basophils # (auto) 0.03 K/uL (0.00-0.20); Basophils % (auto) 1.3 %; Immature Granulocytes # (auto) 0.01 K/uL (0.01-0.20); Immature Granulocytes % (auto) 0.4 %; Lymphocytes % (auto) 51.1 %; Monocytes # (auto) 0.08 K/uL (0.11-0.59); Monocytes % (auto) 3.4 %; Neutrophils # (auto) 1.03 K/uL (1.40-6.50); Neutrophils % (auto) 43.8 %
--- NOTE | 2024-04-10 13:25 | Discharge Summary ---
Discharge Summary Date of Service April 10, 2024 Principal Dx & Hospital Course #1 = Principal Diagnosis (1) LLL pneumonia: Left lower lobe pneumonia-pancytopenicneutropenia Chest x-ray with left lower lobe consolidation, trace effusion CTA: No pulmonary emboli, left lung pneumonia re-demonstrated. Trace right and small left pleural effusions. No pulmonary edema. Mild mediastinal and hilar lymphadenopathy Was on Levaquin x 3 days prior to presentation. Given Zosyn/vancomycin in the ER Transitioned to Cefepime/Flagyl MRSA nares returned negative -> discontinue vancomycin LD 04/10 Sputum culture ordered: shara in sputum no antifungal treatment required. -urine Legionella antigen sent(pending) Blood cultures negative Respiratory biofire negative, Tic borne screen negative, Patient no longer hypoxic. Certainly on nontypical presentation with the patient being hypoxic without a lot of coughing and no preceding symptoms other than syncope Is at risk for malignancy given his smoking history although does not look classic for malignancy Will follow for resolution likely repeat imaging will be recommended a month or so after discharge (2) Pancytopenia: Pt remains with all cell lines down, neutropenic did check B12,folate, tsh, no atypical cell seen Consulted hematology Pancytopenia showing improvement but slowly plan for IR to do bone marrow biopsy on Wednesday. Order placed. (3) Transaminitis: Transaminitis-resolved Prior record review notes a history of C virus in 2014. Patient reports that he did not require treatment for this and thinks it went away. Denies history of cirrhosis Repeat hepatitis serology - Statin held (4) Asthma: Hx asthma stable no wheezing at this time Continue Alvesco/formulary equivalent DuoNebs as needed Steroids not currently indicated Plan DVT prophylaxis: Lovenox CODE STATUS: Full code Notes For Next Care Provider Patient has significant pneumonia with resolution. It be appropriate to have repeat imaging for resolution approximately 1 month after discharge. Patient also was pancytopenic during his hospital stay recommended for bone marrow biopsy by hematology. Patient confused this request stating that if there is something significantly wrong he does not want now even if it would end his life. Certainly if he changes his mind in the future with further recommendations an outpatient bone marrow biopsy can be set up through interventional radiology at [facility]. There would be no need to follow-up with hematology unless this would be performed, or new problem arises Admission HPI Per Admitting Provider Silvia Kaiser is a 73-year-old male with past medical history of hep C, moderate persistent asthma, hyperlipidemia, allergic rhinitis, hypertension, CKD, adjustment disorder with depression who presents with worsened shortness of breath and hypoxia. Outpatient med review her SCI: Alvesco twice daily, lisinopril 5 mg daily, rosuvastatin 10 mg daily, albuterol as needed. Presents to the ER with wheezing, shortness of breath, and increased fatigue over the last week. Has been on levofloxacin x 3 days but continues to feel poorly and was hypoxic to 84% at the present today. No prior oxygen requirement. Patient is recommended for admission for community-acquired pneumonia with increased risk of MRSA due to incarceration and failure to improve on outpatient Levaquin. Pt reports tired, but OK. Mcfp referred for hypoxia. No fevers or chills. No night sweats +cough intermittently. Productive initially for clear pghlem, has not been productive last day or two No wheezing Feels his asthma is actually 'doing OK.' No abdominal pain. No diarrhea/constipation. Appetite poor, has some trouble with half-way food. No aspiration events to his knowledge. Denies history of liver problems, but thinks he had a history of hepatitis 'I beat it'. Thinks this was back in 1991. No history of cirrhosis. Not sure how he was exposed. No history of cancer. Denies history of blood disorders, strokes, heart attacks, blood clots. NKDA. thinks he allergic to some antibiotic but no rash, difficult breathing. Does not remember the name Medical History: Reviewed Medications: Reviewed Surgical History: Reviewed Family history: Reviewed Allergies: Reviewed Social History: Reviewed. Endorses marijuana use, Denies history of drug and needle use. Denies vaping/tobacco use. Quit smoking when half-way stopped selling cigarettes Code Status: Full Code Discharge Exam Patient awake alert appropriate. Lungs have improved with being almost clear to examination card exam is regular no bruises or bleeding noted. Updated Medication List Medication Instructions Recorded Confirmed Type albuterol sulfate 90 mcg/actuation 2 puff inhalation QID PRN 04/04/24 04/04/24 History aerosol inhaler Shortness Of Breath ciclesonide 160 mcg/actuation 1 puff inhalation BID 04/04/24 04/04/24 History aerosol inhaler (Alvesco) lisinopril 5 mg tablet 5 mg PO DAILY 04/04/24 04/04/24 History Hospital Stay Data Consultations 04/04/24 14:44 ED Decision to Admit Stat 04/07/24 07:10 Consult Hematology Routine Diagnostic Imagining Performed 04/04/24 12:55 CT angio chest PE protocol Stat Pending Results Patient Have Any Pending Studies at Discharge: No Discharge Instructions Given to Patient (Per Discharging Provider) This patient has recovered from his pneumonia, however has remained with low blood counts of all cell lines, he was offered further workup and a bone marrow biopsy, as recommended by Hematology, however has refused. He was told that he could have a serious diagnosis such as cancer that is responsible for the blood count changes and if undiagnosed he could , he states he understands but does not want to proceed with the testing. His pneumonia is atypical and would recommend a follow up CXR in a month for resolution Total Time Total Time Spent Total Time Spent (In Minutes): It required greater than 30 minutes to prepare this patient for discharge. Coding Level of Care Code 22388 INP/OBS DISCH >30 MIN Diagnoses LLL pneumonia J18.9 Pneumonia type: due to unspecified organism Pancytopenia D61.818 Transaminitis R74.01 Asthma J45.909
== END 2024-04-10 13:29 | DRG 195 ==
LOC: ED 11:58 → 3N 15:18 → SUATTDRO 15:18 → 3N 19:20

== ENCOUNTER 2024-08-10 12:04 | Inpatient (IN) ==
--- NOTE | 2024-08-10 12:20 | Emergency Department Note ---
Impression & Plan Neutropenic fever, Pancytopenia, Hypomagnesemia ED Provider Note HISTORY OF PRESENT ILLNESS: Patient is a 73-year-old male presenting with reported hypoxia and fever. Patient was seen yesterday in the emergency department after having a syncopal episode. Patient reports that he got very hot and thought he overheated and then passed out. He denies any chest pain, shortness of breath or lightheadedness prior to the episode. He was discharged back to the [facility] and reportedly today was being evaluated in the [facility] and found to be febrile, tachycardic and hypoxic. He was started on 2 L nasal cannula with saturations of 91%. Patient does not normally wear any supplemental oxygen. On arrival to the ER, the patient saturations are 94% on room air. He did have a fever at the [facility] and was given Tylenol prior to coming to the ER. Patient denies any complaints on arrival. He reports he is feeling well. Denies any abdominal pain, nausea or vomiting. ROS: as above PHYSICAL EXAM: Constitutional: Patient appears in no acute distress. HENT: Head: Normocephalic and atraumatic. Eyes: EOMI, PERRL Mouth/Throat: Mucous membranes moist. Neck: Trachea midline. Neck supple. Cardiovascular: Tachycardic with regular rhythm. No murmurs, rubs or gallops. Intact distal pulses. Pulmonary/Chest: No respiratory distress. Breath sounds clear and equal bilaterally. No wheezes or rales. Abdominal: Abdomen soft, no tenderness, rebound or guarding. Musculoskeletal: No edema, tenderness or deformity noted. Skin: Warm and dry. No rash, erythema, pallor or cyanosis Psychiatric: Appropriate mood and affect for situation. Neurological: Alert and keenly responsive. CN II-XII grossly intact, moving all extremities equally and fully. MDM: - Vitals signs showed tachycardia. - History obtained via patient. History as above. - Chronic conditions affecting care: none - Differential diagnoses include, but are not limited to: PE; pneumonia; viral syndrome; ACS; pneumothorax - Order placed for continuous cardiac monitoring. At this time, monitor showed rate of 95 bpm with normal sinus rhythm, per my interpretation. - External medical records reviewed. - EKG interpreted by myself showed normal sinus rhythm. Rate tachycardic at 104 bpm. QT 320. No acute ischemic changes. - Laboratory workup interpreted by myself showed pancytopenia (WBC 3.24; Hgb 9.2; plt 92); neutropenia (ANC 0.29); elevated INR (1.3); slight hyponatremia (Na 15); hypomagnesemia (Mg 1.5); elevated procalcitonin - CXR negative for pneumonia, per my interpretation - CT PE negative for PE. - Given patient's reported fever at the [facility] and neutropenia, blood cultures, lactate and procalcitonin were added to the workup. 2 g IV cefepime was ordered for neutropenic fever. - Patient given 1g IV magnesium for electrolyte replacement. - Discussion was had with immigration case worker about patient's case and need for admission - Hospitalist consulted for admission. Hospitalist team requesting heme/oncology consultation. - Discussed case with heme/onc, Dr. Rucker, at 14:35. He recommended a bone marrow biopsy and to continue the IV cefepime for treatment of the neutropenic fever. Is concerned that this could be MDS/AML. - Patient admitted to [place] [facility] service for further evaluation and management. ASSESSMENT AND PLAN: Diagnosis: Pancytopenia; hypomagnesemia; neutropenic fever Plan: Admit Past Med/Surg History Problem List (Updated 08/10/24 @ 13:34 by Samantha Beckett MD) Hypomagnesemia (Acute) Pancytopenia (Acute) Neutropenic fever (Acute) Syncope (Acute) Pancytopenia Medical History No pertinent family history Asthma LLL pneumonia Surgical History No pertinent past surgical history Social History Smoking Status: Former smoker Tobacco Type: Cigarettes Hx Alcohol Use: No Hx Substance Use: No Preferred Language: Chadian Communication Ability: Effective Animal Shelter Manager Required: No Beliefs That Will Affect Care: None Current Living Situation Comment: [facility] Feels Safe at Home: Yes Assistive Devices: None Allergies Allergies Allergy/AdvReac Type Severity Reaction Status Date / Time erythromycin base Allergy Unknown Unknown Verified 04/04/24 15:06 pepper (genus Capsicum) AdvReac Unknown "OC [place]" Verified 04/10/24 10:14 -- use of OC spray is contraindicated Home Meds Home Medications Medication Instructions Recorded Confirmed albuterol sulfate 90 mcg/actuation 2 puff inhalation QID PRN 04/04/24 04/04/24 aerosol inhaler Shortness Of Breath ciclesonide 160 mcg/actuation 1 puff inhalation BID 04/04/24 04/04/24 aerosol inhaler (Alvesco) lisinopril 5 mg tablet 5 mg PO DAILY 04/04/24 04/04/24 Results & Data (ED) Vital Signs Vital Signs - 24 hr 08/10/24 12:18 08/10/24 12:34 08/10/24 12:59 Temperature 36.8 C Temperature Source Oral Pulse Rate 106 H 108 H Pulse Rate from SpO2 Sensor Respiratory Rate 22 Respiratory Effort / Characteristics Non-Labored Spontaneous Respiratory Depth Normal Respiratory Pattern Regular Blood Pressure 130/70 Blood Pressure Mean 90 Pulse Oximetry 94 93 Oxygen Delivery Method Room Air Room Air Sepsis Recent Fever Within 48 Hours Yes Sepsis New/Unexplained Change in Mental Status No Sepsis Action Taken by Nursing Physician Notified 08/10/24 13:00 08/10/24 14:09 Temperature Temperature Source Pulse Rate 95 H 94 H Pulse Rate from SpO2 Sensor 97 H 93 H Respiratory Rate 22 22 Respiratory Effort / Characteristics Respiratory Depth Respiratory Pattern Blood Pressure 105/65 161/79 H Blood Pressure Mean 78 106 Pulse Oximetry 98 97 Oxygen Delivery Method Sepsis Recent Fever Within 48 Hours Sepsis New/Unexplained Change in Mental Status Sepsis Action Taken by Nursing Laboratory Data 08/10/24 12:25 08/10/24 12:25 Lab Results 08/10/24 08/10/24 08/10/24 Range/Units 12:25 12:26 14:10 WBC 3.24 L (4.8-10.8) K/ul RBC 2.62 L (4.70-6.10) M/uL Hgb 9.2 L (14.0-18.0) g/dl Hct 27.0 L (42.0-52.0) % MCV 103.1 H (80.0-100.0) fL MCH 35.1 H (25.0-34.0) pg MCHC 34.1 (32.0-36.0) g/dL RDW Std Deviation 55.3 H (36.4-46.3) fL RDW Coeff of January 14.6 H (11.5-14.5) % Plt Count 72 L (130-400) K/uL MPV 12.3 (9.4-12.4) fL Neutrophils % (Manual) 9 % Lymphocytes % (Manual) 43 % Reactive Lymphs % (Man) 4 % Monocytes % (Manual) 9 % Blast Cells % (Manual) 2 % Neutrophils # (Manual) 0.29 L (1.40-6.50) K/uL Total Absolute Neuts 0.29 L* (1.4-6.5) K/uL Lymphocytes # (Manual) 1.39 (1.2-3.4) K/uL Reactive Lymphs # 0.13 K/uL Total Abs Lymphocytes 2.59 (1.2-3.4) K/uL Monocytes # (Manual) 0.29 (0.11-0.59) K/uL Blast Cells # (Man) 0.06 H (0-0) K/uL Large Granular Lymphs 33 % # Lrg Granular Lymphs 1.07 K/uL Blood Smear Review Platelet Estimate Decreased L (Normal) Polychromasia 1+ Ovalocytes 2+ PT 13.7 H (9.0-12.0) Seconds INR 1.3 H (0.9-1.1) VBG pH 7.48 H (7.36-7.41) VBG pCO2 43 (38-50) mmHg VBG pO2 30 mmHg VBG HCO3 32 mmol/L VBG O2 Saturation < 60.0 % VBG Base Excess 7.6 mEq/L Sodium 135 L (136-145) mmol/L Potassium 4.1 (3.5-5.1) mmol/L Chloride 98 (98-107) mmol/L Carbon Dioxide 30 (21-32) mmol/L Anion Gap 7 (3-11) BUN 20 (6-23) mg/dl Creatinine 1.27 (0.6-1.4) mg/dl Est Cr Clr Drug Dosing 46.0 ml/min eGFR 59.28 BUN/Creatinine Ratio 15.7 (10-20) Glucose 125 H (70-99(Fasting)) mg/dl Lactate 1.4 (0.4-2.0) mmol/L Calcium 9.7 (8.6-10.3) mg/dl Magnesium 1.5 L (1.7-2.4) mg/dl Total Bilirubin 0.5 (0.2-1.0) mg/dl AST 17 (13-39) U/L ALT 12 (7-52) U/L Alkaline Phosphatase 57 (34-104) U/L Troponin I High Sens 5.2 (0-20) pg/ml Total Protein 7.5 (6.0-8.3) gm/dl Albumin 3.9 (3.4-5.0) gm/dl Globulin 3.6 (2.5-4.0) gm/dl Albumin/Globulin Ratio 1.1 (0.9-2) Procalcitonin 0.69 H (0-0.5) ng/ml Adenovirus (PCR) Not Detected (NotDetected) B. pertussis DNA (PCR) Not Detected (NotDetected) B.parapertussis DNA PCR Not Detected (NotDetected) C. pneumoniae DNA (PCR) Not Detected (NotDetected) Coronavirus OC43 (PCR) Not Detected (NotDetected) Coronavirus HKU1 (PCR) Not Detected (NotDetected) Coronavirus 229E (PCR) Not Detected (NotDetected) SARS-CoV-2 (PCR) Not Detected (NotDetected) Coronavirus NL63 (PCR) Not Detected (NotDetected) Human Metapneumovir PCR Not Detected (NotDetected) Influenza Type A (PCR) Not Detected (NotDetected) Influenza Type B (PCR) Not Detected (NotDetected) M. pneumoniae (PCR) Not Detected (NotDetected) Parainfluenza 1 (PCR) Not Detected (NotDetected) Parainfluenza 2 (PCR) Not Detected (NotDetected) Parainfluenza 3 (PCR) Not Detected (NotDetected) Parainfluenza 4 (PCR) Not Detected (NotDetected) RSV (PCR) Not Detected (NotDetected) Entero/Rhino (PCR) Not Detected (NotDetected) Administered Medications Discontinued Medications Cefepime HCl (Maxipime 2000mg) 2,000 mg in 20 mls @ 5 mls/min IV NOW STA; Protocol Stop: 08/10/24 13:29 Last Admin: 08/10/24 13:32 Dose: 5 mls/min Documented By: CARTER Magnesium Sulfate/Dextrose (Magnesium Sulfate / D5w) 1 gm in 100 mls @ 100 mls/hr IV NOW STA Stop: 08/10/24 14:33 Last Admin: 08/10/24 14:01 Dose: 100 mls/hr Documented By: CARTER Ioversol (Optiray 320 125ml) 119 ml IV ONCE ONE Stop: 08/10/24 13:12 Last Admin: 08/10/24 13:11 Dose: 119 ml Documented By: ARON Imaging Data Radiologist's Impression: Chest CTA 08/10/24 12:18 CT ANGIOGRAPHY OF THE CHEST, PULMONARY EMBOLUS PROTOCOL CLINICAL HISTORY: Dyspnea; syncope COMPARISON STUDY: Chest CT April 14, 2024. TECHNIQUE: Following IV administration of 119 mL of Optiray, helical axial images of the chest were obtained utilizing the pulmonary embolus protocol. Maximal intensity projections and sagittal and coronal reformats were viewed on an independent 3D workstation. IV contrast was administered without complication. Automated exposure control was utilized for the study. A dose lowering technique was utilized adhering to the principles of ALARA. CT DOSE: 656.12 mGy.cm FINDINGS: No pulmonary emboli are identified. There is mild dilatation of the central pulmonary arteries. There is no thoracic aortic dissection. The heart is mildly enlarged and there is moderate coronary artery calcification. No pneumothorax or pleural effusion is present. Left lower lobe pneumonia on CT of April 14, 2024 has resolved. Minimal left lower lobe opacity favors atelectasis. Mediastinal and hilar adenopathy has improved. There is mild emphysema. No acute fractures within the visualized bony thorax are present. IMPRESSION: 1. No pulmonary emboli identified. 2. No acute intrathoracic findings. 3. Mild cardiomegaly and mild dilatation of the central pulmonary arteries which raises the possibility of pulmonary arterial hypertension. 4. Emphysema. ACT 112: Negative or not required by law. Electronically signed by: Edinson Burch M.D. 08/10/2024 1:48 PM Chest X-Ray 08/10/24 12:18 XR chest 1V portable CLINICAL HISTORY: Dyspnea COMPARISON STUDY: Chest CT April 04, 2024. Chest radiograph August 09, 2024. FINDINGS: Linear bibasilar densities suggest atelectasis. There is no pneumothorax or pleural effusion. Cardiac size is stable. Mediastinal contours are normal. There is no evidence for pulmonary edema. IMPRESSION: No acute cardiopulmonary findings. ACT 112: Negative or not required by law. Electronically signed by: Edinson Burch M.D. 08/10/2024 1:22 PM Discharge Plan Visit Data Chief Complaint: Illness ED Provider: Samantha Beckett Discharge Problem: Neutropenic fever, Pancytopenia, Hypomagnesemia Forms Stand Alone Forms: My [facility] Prescriptions Prescriptions: No Action albuterol sulfate 90 mcg/actuation Hfa Aerosol Inhaler 2 puff INHALATION QID PRN (Reason: Shortness Of Breath) lisinopril 5 mg Tablet 5 mg PO DAILY Alvesco 160 mcg/actuation Hfa Aerosol Inhaler 1 puff INHALATION BID Referrals Referrals: Dahiana NATION [Primary Care Provider] -
[2024-08-10 12:36] LABS: Base Excess VBG 7.6 mEq/L; HCO3 VBG 32 mmol/L; Oxygen Saturation VBG < 60.0 %; PCO2 VBG 43 mmHg (38-50); PO2 VBG 30 mmHg; pH VBG 7.48 (7.36-7.41)
[2024-08-10 13:00] LABS: Albumin Globulin Ratio 1.1 (0.9-2); Albumin Level 3.9 gm/dl (3.4-5.0); BUN Creatinine Ratio 15.7 (10-20); Bilirubin,Total 0.5 mg/dl (0.2-1.0); Calcium 9.7 mg/dl (8.6-10.3); Globulin 3.6 gm/dl (2.5-4.0); Magnesium 1.5 mg/dl (1.7-2.4); Potassium 4.1 mmol/L (3.5-5.1); Total Protein 7.5 gm/dl (6.0-8.3)
[2024-08-10 13:07] LABS: Troponin I High Sensitivity 5.2 pg/ml (0-20)
[2024-08-10] MEDS: OPTIRAY 320 125ml IV ONE (13:11)
[2024-08-10 13:13] LABS: INR 1.3 (0.9-1.1); Prothrombin Time 13.7 Seconds (9.0-12.0)
[2024-08-10 13:17] LABS: Hemoglobin 9.2 g/dl (14.0-18.0); Mean Corpuscular Hemoglobin 35.1 pg (25.0-34.0); Mean Corpuscular Hgb Conc 34.1 g/dL (32.0-36.0); Mean Corpuscular Volume 103.1 fL (80.0-100.0); Mean Platelet Volume 12.3 fL (9.4-12.4); Platelet Count 72 K/uL (130-400); RDW Coefficient of Variation 14.6 % (11.5-14.5); RDW Standard Deviation 55.3 fL (36.4-46.3); Red Blood Count 2.62 M/uL (4.70-6.10); White Blood Count 3.24 K/ul (4.8-10.8)
[2024-08-10 13:24] LABS: ALC (manual) 2.59 K/uL (1.2-3.4); ANC (manual) 0.29 K/uL (1.4-6.5); Blast # (manual) 0.06 K/uL (0-0); Blast Cells % (manual) 2 %; Large Granular Lymph # (manua 1.07 K/uL; Large Granular Lymph % (manual) 33 %; Lymphocytes # (manual) 1.39 K/uL (1.2-3.4); Lymphocytes % (manual) 43 %; Monocytes # (manual) 0.29 K/uL (0.11-0.59); Monocytes % (manual) 9 %; Neutrophils # (manual) 0.29 K/uL (1.40-6.50); Neutrophils % (manual) 9 %; Ovalocytes 2+; Platelet Estimate Decreased (Normal); Polychromasia 1+; Reactive Lymphocytes # (manual) 0.13 K/uL; Reactive Lymphocytes % (manual) 4 %
--- NOTE | 2024-08-10 13:24 | XRay Report ---
XR chest 1V portable CLINICAL HISTORY: Dyspnea COMPARISON STUDY: Chest CT April 04, 2024. Chest radiograph August 09, 2024. FINDINGS: Linear bibasilar densities suggest atelectasis. There is no pneumothorax or pleural effusio n. Cardiac size is stable. Mediastinal contours are normal. There is no evidence for pulmonary edema. IMPRESSION: No acute cardiopulmonary findings. ACT 112: Negative or not required by law. Electronically signed by: Edinson Burch M.D. 08/10/2024 1:22 PM
[2024-08-10] MEDS: CEFEPIME 2000MG 2,000 MG/20 ML SYR IV STA (13:32)
[2024-08-10 13:48] LABS: Adenovirus PCR Not Detected (NotDetected); Bordetella parapertussis PCR Not Detected (NotDetected); Bordetella pertussis PCR Not Detected (NotDetected); Chlamydia pneumoniae PCR Not Detected (NotDetected); Coronavirus 229E PCR Not Detected (NotDetected); Coronavirus CoV-2 (COVID19)PCR Not Detected (NotDetected); Coronavirus HKU1 PCR Not Detected (NotDetected); Coronavirus NL63 PCR Not Detected (NotDetected); Coronavirus OC43PCR Not Detected (NotDetected); Human Metapneumovirus PCR Not Detected (NotDetected); Influenza A PCR Not Detected (NotDetected); Influenza B PCR Not Detected (NotDetected); Mycoplasma pneumoniae PCR Not Detected (NotDetected); Parainfluenza Virus 1 PCR Not Detected (NotDetected); Parainfluenza Virus 2 PCR Not Detected (NotDetected); Parainfluenza Virus 3 PCR Not Detected (NotDetected); Parainfluenza Virus 4 PCR Not Detected (NotDetected); Respiratory Syncytial VirusPCR Not Detected (NotDetected); Rhinovirus/Enterovirus PCR Not Detected (NotDetected)
--- NOTE | 2024-08-10 13:50 | CT Scan Report ---
CT ANGIOGRAPHY OF THE CHEST, PULMONARY EMBOLUS PROTOCOL CLINICAL HISTORY: Dyspnea; syncope COMPARISON STUDY: Chest CT April 14, 2024. TECHNIQUE: Following IV administration of 119 mL of Optiray, helical axial images of the chest were o btained utilizing the pulmonary embolus protocol. Maximal intensity projections and sagittal and cor onal reformats were viewed on an independent 3D workstation. IV contrast was administered without co mplication. Automated exposure control was utilized for the study. A dose lowering technique was ut ilized adhering to the principles of ALARA. CT DOSE: 656.12 mGy.cm FINDINGS: No pulmonary emboli are identified. There is mild dilatation of the central pulmonary bart zahra. There is no thoracic aortic dissection. The heart is mildly enlarged and there is moderate soto nary artery calcification. No pneumothorax or pleural effusion is present. Left lower lobe pneumonia on CT of April 14, 2024 has resolved. Minimal left lower lobe opacity favors atelectasis. Mediastinal and hilar adenopathy has improved. There is mild emphysema. No acute fractures within the visualized bony thorax are present. IMPRESSION: 1. No pulmonary emboli identified. 2. No acute intrathoracic findings. 3. Mild cardiomegaly and mild dilatation of the central pulmonary arteries which raises the possibili ty of pulmonary arterial hypertension. 4. Emphysema. ACT 112: Negative or not required by law. Electronically signed by: Edinson Burch M.D. 08/10/2024 1:48 PM
[2024-08-10] MEDS: MAGNESIUM SULFATE / D5W 1 GM/100 ML BAG IV STA (14:01)
--- NOTE | 2024-08-10 15:40 | History & Physical Report ---
Date of Service August 10, 2024 Assessment & Plan (1) Neutropenic fever: Plan: Empiric cefepime. No source on admission although UA pending. Fever measured at [facility] but not here Follow up blood cultures - if negative can return to [facility] Neutropenic isolation precautions (2) Pancytopenia: Plan: Suspected underlying hematological cancer although like his previous admission he is refusing bone marrow biopsy as previously recommended by hematology therefore will cancel hematology consult here as he adamatly does not want this. (3) Hypomagnesemia: Plan: Replace and repeat level Plan VTE Prophylaxis - chemical deferred pending serial platelet measurements Diet - regular Disposition - admit to med/tele Admission and Anticipated Discharge Date Admission Date: August 10, 2024 History of Present Illness Chief Complaint: Fever and hypoxia Primary Care Provider: RIOS Talbot Silvia Kaiser is a 73 year old male [facility] inmate who presents to the ER with fever and hypoxia. He was seen yesterday in the ER following a syncopal episode while in the kitchen he became hot and lost consciousness. He returned back to the [facility] and on evaluation today was found to be febrile, tachycardic and hypoxic therefore sent back to the ER. The patient reports having a mild cough on and off for the last week with productive white sputum and a "head cold" with nasal congestion and post nasal drip. He reports being told he had a fever at the [facility] although is afebrile currently in the ER. Otherwise no sinus pain, chest pain, abdominal pain, nausea, vomiting, diarrhea, urinary symptoms, confusion, neck pain or headache. Allergies Allergy/AdvReac Type Severity Reaction Status Date / Time erythromycin base Allergy Unknown Unknown Verified 08/10/24 15:21 pepper (genus Capsicum) AdvReac Unknown "OC [place]" Verified 08/10/24 15:21 -- use of OC spray is contraindicated Home Medications Medication Instructions Recorded Confirmed Type albuterol sulfate 90 mcg/actuation 2 puff inhalation QID PRN 04/04/24 08/10/24 History aerosol inhaler Shortness Of Breath ciclesonide 160 mcg/actuation 1 puff inhalation BID 04/04/24 08/10/24 History aerosol inhaler ([place]) cyanocobalamin (vitamin B-12) 500 500 mcg PO DAILY 08/10/24 08/10/24 History mcg tablet (Vitamin B-12) lisinopril 10 mg tablet 10 mg PO DAILY 08/10/24 08/10/24 History rosuvastatin 10 mg tablet 10 mg PO DAILY 08/10/24 08/10/24 History Past Med/Surg History Problem List (Updated 08/10/24 @ 13:34 by Samantha Beckett MD) Hypomagnesemia (Acute) Pancytopenia (Acute) Neutropenic fever (Acute) Syncope (Acute) Pancytopenia Medical History No pertinent family history Asthma LLL pneumonia Surgical History No pertinent past surgical history Social History Smoking Status: Former smoker Tobacco Type: Cigarettes Second Hand Exposure: Yes; Do You Dip or Chew Tobacco: No; Tobacco Cessation Education Requested by Patient: No Hx Alcohol Use: No Hx Substance Use: No Preferred Language: Australian Communication Ability: Effective Training Development Director Required: No Beliefs That Will Affect Care: None Current Living Situation: Other Current Living Situation Comment: [facility] Other Information That Helps Us Care for You: No Feels Safe at Home: Yes Safety Concerns: Feels Safe At This Time Assistive Devices: Denture - Upper, Denture - Lower and Glasses Review of Systems Review of Systems: All systems reviewed & are unremarkable except as noted in HPI & below Physical Exam Constitutional: well developed; + not well nourished and no acute distress Eyes: PERRL, conjunctivae normal, anicteric sclerae ENMT: external ear and nose normal, oropharynx normal Respiratory: normal respiratory effort, lungs clear to auscultation Cardiovascular: RRR, no murmur, no edema Gastrointestinal (Abdomen): normal bowel sounds, soft, nontender, no hepatosplenomegaly Musculoskeletal: no cyanosis or clubbing, extremities motor strength 5/5 Skin: no rashes, warm and dry Neurologic: moves all extremities and awake; not confused Psychiatric: A+Ox3, euthymic affect Results & Data Results & Data Vital Signs (Past 12 Hours) Vital Signs Temp Pulse Resp BP Pulse Ox O2 Del Method 08/10/24 14:09 94 H 22 161/79 H 97 08/10/24 13:00 95 H 22 105/65 98 08/10/24 12:59 108 H 08/10/24 12:34 93 Room Air 08/10/24 12:18 36.8 C 106 H 22 130/70 94 Room Air Laboratory Results Abnormal lab results 08/10/24 08/10/24 Range/Units 12:25 14:10 WBC 3.24 L (4.8-10.8) K/ul RBC 2.62 L (4.70-6.10) M/uL Hgb 9.2 L (14.0-18.0) g/dl Hct 27.0 L (42.0-52.0) % MCV 103.1 H (80.0-100.0) fL MCH 35.1 H (25.0-34.0) pg RDW Std Deviation 55.3 H (36.4-46.3) fL RDW Coeff of January 14.6 H (11.5-14.5) % Plt Count 72 L (130-400) K/uL Neutrophils # (Manual) 0.29 L (1.40-6.50) K/uL Total Absolute Neuts 0.29 L* (1.4-6.5) K/uL Blast Cells # (Man) 0.06 H (0-0) K/uL Platelet Estimate Decreased L (Normal) PT 13.7 H (9.0-12.0) Seconds INR 1.3 H (0.9-1.1) VBG pH 7.48 H (7.36-7.41) Sodium 135 L (136-145) mmol/L Glucose 125 H (70-99(Fasting)) mg/dl Magnesium 1.5 L (1.7-2.4) mg/dl Procalcitonin 0.69 H (0-0.5) ng/ml Diagnostic Findings XR chest 1V portable CLINICAL HISTORY: Dyspnea COMPARISON STUDY: Chest CT April 04, 2024. Chest radiograph August 09, 2024. FINDINGS: Linear bibasilar densities suggest atelectasis. There is no pneumothorax or pleural effusion. Cardiac size is stable. Mediastinal contours are normal. There is no evidence for pulmonary edema. IMPRESSION: No acute cardiopulmonary findings. CT ANGIOGRAPHY OF THE CHEST, PULMONARY EMBOLUS PROTOCOL CLINICAL HISTORY: Dyspnea; syncope COMPARISON STUDY: Chest CT April 14, 2024. TECHNIQUE: Following IV administration of 119 mL of Optiray, helical axial images of the chest were obtained utilizing the pulmonary embolus protocol. Maximal intensity projections and sagittal and coronal reformats were viewed on an independent 3D workstation. IV contrast was administered without complica tion. Automated exposure control was utilized for the study. A dose lowering technique was utilized adhering to the principles of ALARA. CT DOSE: 656.12 mGy.cm FINDINGS: No pulmonary emboli are identified. There is mild dilatation of the central pulmonary arteries. There is no thoracic aortic dissection. The heart is mildly enlarged and there is moderate coronary artery calcification. No pneumo thorax or pleural effusion is present. Left lower lobe pneumonia on CT of April 14, 2024 has resolved. Minimal left lower lobe opacity favors atelectasis. Mediastinal and hilar adenopathy has improved. There is mild emphysema. No acute fractures within the visualized bony thorax are present. IMPRESSION: 1. No pulmonary emboli identified. 2. No acute intrathoracic findings. 3. Mild cardiomegaly and mild dilatation of the central pulmonary arteries which raises the possibility of pulmonary arterial hypertension. 4. Emphysema. Medications Administered ER Medications Given: Cefepime 2000mg IV Magnesium sulfate 1g IV ECG Rate (beats per minute): 104 Rhythm: sinus tachycardia Findings: no acute ischemic change Comparison ECG Date: from (August 09, 2024) Change: no significant change Code Status & VTE Plan Code Status Full VTE Prophylaxis Plan VTE Prophylaxis will be ordered: No PG Care Time/CCT Total # of Minutes Spent Total Time Spent with Patient: Total time spent is greater than 50% in coordination of care (as documented) at patient's floor/unit and/or counseling patient: Coding Level of Care Code 83444 INT INP/OBS CARE 2/55MIN Diagnoses Neutropenic fever D70.9; R50.81 Pancytopenia D61.818 Hypomagnesemia E83.42
--- NOTE | 2024-08-10 17:14 | Electrocardiogram Report ---
Test Reason : Blood Pressure : */* mmHG Vent. Rate : 104 BPM Atrial Rate : 104 BPM P-R Int : 122 ms QRS Dur : 92 ms QT Int : 320 ms P-R-T Axes : 58 10 35 degrees QTcB Int : 420 ms Sinus tachycardia Otherwise normal ECG When compared with ECG of 09-Aug-2024 15:57, No significant change Confirmed by Rory Stanford ([id number]) on 08/10/2024 5:14:31 PM Referred By: [facility] Confirmed By: Rory Stanford
[2024-08-10] MEDS ORDERED: ALBUTEROL HFA 8 GM INHALER INH PRN (20:31)
[2024-08-10] MEDS: ACETAMINOPHEN 325 MG TAB PO PRN (20:33)
[2024-08-10 20:59] LABS: Appearance Urine Clear (Clear); Bacteria Urine Automated None Seen (None Seen); Bilirubin Urine Negative (Negative); Blood Urine 2+ (Negative); Cast Urine Automated 0-2 /lpf (0-2); Color Urine Yellow; Epithelial Cell Urine Auto 0-2 /hpf (0-2); Glucose Urine UA Negative (Negative); Ketones Urine 1+ (Negative); Leukocyte Esterase Urine Negative (Negative); Nitrite Urine Negative (Negative); Protein Urine 2+ (Negative); Specific Gravity Urine > 1.045 (1.000-1.030); Urobilinogen Urine Negative (Negative); WBC Urine Automated 0-5 /hpf (0-5); pH Urine 5.5 (4.5-7.5)
[2024-08-11] MEDS: CEFEPIME 2000MG 2,000 MG/20 ML SYR IV SCH (01:13)
[2024-08-11] MEDS: FLUTICASONE FUROATE 100MCG 14 PUFFS/INHALER INH SCH (01:16)
[2024-08-11] MEDS: ROSUVASTATIN CALCIUM 10 MG TAB PO SCH (08:10)
[2024-08-11] MEDS: lisinopril 10 MG TAB PO SCH (08:10)
[2024-08-11 10:20] LABS: Albumin Globulin Ratio 1.1 (0.9-2); Albumin Level 3.4 gm/dl (3.4-5.0); BUN Creatinine Ratio 15.8 (10-20); Bilirubin,Total 0.4 mg/dl (0.2-1.0); Creatinine Clr Calc Pharmacy 48.7 ml/min; Globulin 3.2 gm/dl (2.5-4.0); Magnesium 1.7 mg/dl (1.7-2.4); Potassium 3.7 mmol/L (3.5-5.1); Total Protein 6.6 gm/dl (6.0-8.3)
[2024-08-11 10:33] LABS: Hematocrit (blood only) 24.5 % (42.0-52.0); Hemoglobin 8.3 g/dl (14.0-18.0); Mean Corpuscular Hemoglobin 34.9 pg (25.0-34.0); Mean Corpuscular Hgb Conc 33.9 g/dL (32.0-36.0); Mean Corpuscular Volume 102.9 fL (80.0-100.0); Mean Platelet Volume 12.4 fL (9.4-12.4); Platelet Count 52 K/uL (130-400); RDW Coefficient of Variation 14.8 % (11.5-14.5); RDW Standard Deviation 55.9 fL (36.4-46.3); Red Blood Count 2.38 M/uL (4.70-6.10); White Blood Count 1.92 K/ul (4.8-10.8)
[2024-08-11 11:00] LABS: ALC (manual) 0.86 K/uL (1.2-3.4); ANC (manual) 0.54 K/uL (1.4-6.5); Basophils # (manual) 0.19 K/uL (0-0.2); Basophils % (manual) 10 %; Blast # (manual) 0.06 K/uL (0-0); Blast Cells % (manual) 3 %; Lymphocytes # (manual) 0.86 K/uL (1.2-3.4); Lymphocytes % (manual) 45 %; Macrocytosis Present; Metamyelocytes # (manual) 0.04 K/uL (0-0); Metamyelocytes % (manual) 2 %; Monocytes # (manual) 0.23 K/uL (0.11-0.59); Monocytes % (manual) 12 %; Neutrophils # (manual) 0.54 K/uL (1.40-6.50); Neutrophils % (manual) 28 %; Ovalocytes 1+; Polychromasia 1+; Rouleaux 1+
--- NOTE | 2024-08-11 23:35 | Hospitalist Progress Note ---
Date of Service August 11, 2024 Assessment & Plan (1) Neutropenic fever: Plan: Empiric cefepime. No source on admission although UA pending. Fever measured at [facility] but not here Follow up blood cultures - if negative can return to [facility] Neutropenic isolation precautions. No temperature during hospital stay. Likely discharge on 08/12 (2) Pancytopenia: Plan: Suspected underlying hematological cancer although like his previous admission he is refusing bone marrow biopsy as previously recommended by hematology therefore will cancel hematology consult here as he adamatly does not want this. (3) Hypomagnesemia: Plan: Replace and repeat level Plan VTE Prophylaxis - chemical deferred pending serial platelet measurements Diet - regular Disposition - admit to med/tele Admission and Anticipated Discharge Date Admission Date: August 10, 2024 Subjective Patient reports no new symptoms. Patient asking to be discharged. Physical Exam Constitutional: well developed; + not well nourished and no acute distress Eyes: PERRL, conjunctivae normal, anicteric sclerae ENMT: external ear and nose normal, oropharynx normal Respiratory: normal respiratory effort, lungs clear to auscultation Cardiovascular: RRR, no murmur, no edema Gastrointestinal (Abdomen): normal bowel sounds, soft, nontender, no hepatosplenomegaly Musculoskeletal: no cyanosis or clubbing, extremities motor strength 5/5 Skin: no rashes, warm and dry Neurologic: moves all extremities and awake; not confused Psychiatric: A+Ox3, euthymic affect Results & Data Results & Data Vital Signs (Past 12 Hours) Vital Signs Temp Pulse Resp BP Pulse Ox O2 Del Method O2 Flow Rate 08/11/24 22:02 Nasal Cannula 2 08/11/24 21:54 37.2 C 100 H 18 100/62 97 Nasal Cannula 2 08/11/24 20:55 112 H 95 Nasal Cannula 2 08/11/24 20:53 115 H 88 L Room Air 08/11/24 20:42 39.4 C H 115 H 18 115/67 92 Room Air 08/11/24 15:14 37.3 C 104 H 16 110/65 92 Room Air PG Care Time/CCT Total # of Minutes Spent Total Time Spent with Patient: Total time spent is greater than 50% in coordination of care (as documented) at patient's floor/unit and/or counseling patient: Coding Level of Care Code 82261 SUB INP/OBS CARE 2/35MIN Diagnoses Neutropenic fever D70.9; R50.81 Pancytopenia D61.818 Hypomagnesemia E83.42
[2024-08-12 06:25] LABS: Albumin Globulin Ratio 0.9 (0.9-2); Albumin Level 3.2 gm/dl (3.4-5.0); Bilirubin,Total 0.3 mg/dl (0.2-1.0); C Reactive Protein 24.75 mg/dl (0-0.5); Calcium 8.9 mg/dl (8.6-10.3); Creatinine Clr Calc Pharmacy 38.2 ml/min; Globulin 3.4 gm/dl (2.5-4.0); Potassium 4.5 mmol/L (3.5-5.1); Total Protein 6.6 gm/dl (6.0-8.3)
[2024-08-12 06:42] LABS: Hematocrit (blood only) 24.6 % (42.0-52.0); Hemoglobin 8.2 g/dl (14.0-18.0); Mean Corpuscular Hemoglobin 34.5 pg (25.0-34.0); Mean Corpuscular Hgb Conc 33.3 g/dL (32.0-36.0); Mean Corpuscular Volume 103.4 fL (80.0-100.0); Mean Platelet Volume 9.6 fL (9.4-12.4); Platelet Count 49 K/uL (130-400); RDW Coefficient of Variation 14.8 % (11.5-14.5); RDW Standard Deviation 56.5 fL (36.4-46.3); Red Blood Count 2.38 M/uL (4.70-6.10); White Blood Count 2.27 K/ul (4.8-10.8)
[2024-08-12 07:17] LABS: ALC (manual) 1.48 K/uL (1.2-3.4); ANC (manual) 0.25 K/uL (1.4-6.5); Basophils # (manual) 0.27 K/uL (0-0.2); Basophils % (manual) 12 %; Blast # (manual) 0.09 K/uL (0-0); Blast Cells % (manual) 4 %; Lymphocytes # (manual) 1.48 K/uL (1.2-3.4); Lymphocytes % (manual) 65 %; Monocytes # (manual) 0.18 K/uL (0.11-0.59); Monocytes % (manual) 8 %; Neutrophils # (manual) 0.25 K/uL (1.40-6.50); Neutrophils % (manual) 11 %; Ovalocytes 2+; Polychromasia 1+; Tear Drop Cells 1+
--- NOTE | 2024-08-12 11:21 | Hospitalist Progress Note ---
Date of Service August 12, 2024 Assessment & Plan (1) Neutropenic fever: Plan: Empiric cefepime. No source on admission. Urinalysis negative He continues to spike fevers. Blood cultures so far negative. Neutropenic isolation precautions. (2) Pancytopenia: Plan: Suspected underlying hematological cancer although like his previous admission he is refusing bone marrow biopsy as previously recommended by hematology therefore hematology consult was canceled here as he adamatly does not want this. (3) Hypomagnesemia: Plan: Replaced (4) Acute kidney injury: Plan: Likely due to dehydration. Encourage to drink fluids. Started IV fluid at 80 mL an hour Avoid nephrotoxic medications Monitor BMP Plan VTE Prophylaxis - chemical deferred pending serial platelet measurements Diet - regular Admission and Anticipated Discharge Date Admission Date: August 10, 2024 Subjective Patient was seen and examined at 10:25 AM. Noted that he has been spiking fevers. However he particularly does not feel that. He says that he has not been drinking enough fluids. He has been coughing. There are no other symptoms. He declines a bone marrow biopsy again. Review of Systems Review of Systems: All systems reviewed & are unremarkable except as noted in Subjective Physical Exam Physical Exam: General: Awake, conversant Heart: S1, S2/regular rate and rhythm, no murmur rubs or gallops Lungs: Clear to auscultation bilaterally. Normal effort Abdomen: Soft/nontender/nondistended. No hepatosplenomegaly Extremities: No clubbing/cyanosis. No edema Behavior: Appropriate, cooperative Results & Data Results & Data Vital Signs (Past 12 Hours) Vital Signs Temp Pulse Resp BP Pulse Ox O2 Del Method O2 Flow Rate 08/12/24 10:15 Nasal Cannula 2 08/12/24 07:15 37.9 C H 95 H 18 112/64 97 Nasal Cannula 1.0 Laboratory Results Abnormal lab results 08/12/24 Range/Units 05:32 WBC 2.27 L (4.8-10.8) K/ul RBC 2.38 L (4.70-6.10) M/uL Hgb 8.2 L (14.0-18.0) g/dl Hct 24.6 L (42.0-52.0) % MCV 103.4 H (80.0-100.0) fL MCH 34.5 H (25.0-34.0) pg RDW Std Deviation 56.5 H (36.4-46.3) fL RDW Coeff of January 14.8 H (11.5-14.5) % Plt Count 49 L (130-400) K/uL Neutrophils # (Manual) 0.25 L (1.40-6.50) K/uL Total Absolute Neuts 0.25 L* (1.4-6.5) K/uL Basophils # (Manual) 0.27 H (0-0.2) K/uL Blast Cells # (Man) 0.09 H (0-0) K/uL BUN 26 H (6-23) mg/dl Creatinine 1.53 H D (0.6-1.4) mg/dl Glucose 122 H (70-99(Fasting)) mg/dl C-Reactive Protein 24.75 H (0-0.5) mg/dl Albumin 3.2 L (3.4-5.0) gm/dl Procalcitonin 0.76 H (0-0.5) ng/ml PG Care Time/CCT Total # of Minutes Spent Total Time Spent with Patient: Total time spent is greater than 50% in coordination of care (as documented) at patient's floor/unit and/or counseling patient: Coding Level of Care Code 87379 SUB INP/OBS CARE 2/35MIN Diagnoses Neutropenic fever D70.9; R50.81 Pancytopenia D61.818 Hypomagnesemia E83.42 Acute kidney injury N17.9
[2024-08-12] MEDS: SODIUM CHLORIDE 0.9% 1,000 ML IV SCH (11:49)
[2024-08-13 06:25] LABS: Hemoglobin 7.6 g/dl (14.0-18.0); Mean Corpuscular Hemoglobin 34.5 pg (25.0-34.0); Mean Corpuscular Volume 104.5 fL (80.0-100.0); Platelet Count 47 K/uL (130-400); RDW Coefficient of Variation 14.4 % (11.5-14.5); RDW Standard Deviation 54.3 fL (36.4-46.3); White Blood Count 2.29 K/ul (4.8-10.8)
[2024-08-13 06:43] LABS: BUN Creatinine Ratio 19.3 (10-20); Calcium 8.6 mg/dl (8.6-10.3); Creatinine Clr Calc Pharmacy 49.1 ml/min; Potassium 4.2 mmol/L (3.5-5.1)
[2024-08-13 06:48] LABS: ALC (manual) 1.53 K/uL (1.2-3.4); ANC (manual) 0.32 K/uL (1.4-6.5); Basophils # (manual) 0.14 K/uL (0-0.2); Basophils % (manual) 6 %; Blast # (manual) 0.07 K/uL (0-0); Blast Cells % (manual) 3 %; Lymphocytes # (manual) 1.53 K/uL (1.2-3.4); Lymphocytes % (manual) 67 %; Monocytes # (manual) 0.23 K/uL (0.11-0.59); Monocytes % (manual) 10 %; Neutrophils # (manual) 0.32 K/uL (1.40-6.50); Neutrophils % (manual) 14 %; Ovalocytes 1+; Polychromasia 1+
--- NOTE | 2024-08-13 10:59 | Hospitalist Progress Note ---
Date of Service August 13, 2024 Assessment & Plan (1) Neutropenic fever: Plan: Empiric cefepime. No source on admission. Urinalysis negative He continues to spike fevers. Blood cultures so far negative. Still neutropenic Neutropenic isolation precautions. Added IV caspofungin since still spiking fevers. Sputum culture back in March was positive for Betty. Ordered CT sinuses CT chest was negative this hospitalization Consider ID consult (2) Pancytopenia: Plan: Suspected underlying hematological cancer although like his previous admission he is refusing bone marrow biopsy as previously recommended by hematology therefore hematology consult was canceled here as he adamatly does not want this. HIV negative in March (3) Hypomagnesemia: Plan: Replaced (4) Acute kidney injury: Plan: Resolved with hydration Avoid nephrotoxic medications Monitor BMP Plan VTE Prophylaxis - chemical deferred pending serial platelet measurements Diet - regular Admission and Anticipated Discharge Date Admission Date: August 10, 2024 Subjective Patient was seen and examined at 8:40 AM. He does not have any major complaints. But noted that he has been some still spiking fevers. 37.9 degrees this morning. Denies chest pain, shortness of breath. He says that he was coughing but is getting better. No abdominal pain. He says he is doing better with drinking fluids now. Review of Systems Review of Systems: All systems reviewed & are unremarkable except as noted in Subjective Physical Exam Physical Exam: General: Awake, conversant Heart: S1, S2/regular rate and rhythm, no murmur rubs or gallops Lungs: Clear to auscultation bilaterally. Normal effort Abdomen: Soft/nontender/nondistended. No hepatosplenomegaly Extremities: No clubbing/cyanosis. No edema Behavior: Appropriate, cooperative Results & Data Results & Data Vital Signs (Past 12 Hours) Vital Signs Temp Pulse Resp BP Pulse Ox O2 Del Method O2 Flow Rate 08/13/24 08:32 Room Air 08/13/24 07:45 93 Room Air 08/13/24 07:28 37.9 C H 99 H 16 131/67 98 Nasal Cannula 2 Laboratory Results Abnormal lab results 08/13/24 Range/Units 05:37 WBC 2.29 L (4.8-10.8) K/ul RBC 2.20 L (4.70-6.10) M/uL Hgb 7.6 L (14.0-18.0) g/dl Hct 23.0 L (42.0-52.0) % MCV 104.5 H (80.0-100.0) fL MCH 34.5 H (25.0-34.0) pg RDW Std Deviation 54.3 H (36.4-46.3) fL Plt Count 47 L (130-400) K/uL Neutrophils # (Manual) 0.32 L (1.40-6.50) K/uL Total Absolute Neuts 0.32 L* (1.4-6.5) K/uL Blast Cells # (Man) 0.07 H (0-0) K/uL Glucose 111 H (70-99(Fasting)) mg/dl PG Care Time/CCT Total # of Minutes Spent Total Time Spent with Patient: Total time spent is greater than 50% in coordination of care (as documented) at patient's floor/unit and/or counseling patient: Coding Level of Care Code 73215 SUB INP/OBS CARE 2/35MIN Diagnoses Neutropenic fever D70.9; R50.81 Pancytopenia D61.818 Hypomagnesemia E83.42 Acute kidney injury N17.9
[2024-08-13] MEDS: CEFEPIME 2000MG 2,000 MG/20 ML SYR IV SCH (11:37)
[2024-08-13] MEDS: CASPOFUNGIN 70 MG in SODIUM CHLORIDE 0.9% 250 ML IV ONE (11:37)
--- NOTE | 2024-08-13 14:31 | CT Scan Report ---
EXAM: CT Maxillofacial Without Intravenous Contrast INDICATION: Neutropenic fever TECHNIQUE: Axial computed tomography images of the face without intravenous contrast. Sagittal and coronal reformatted images were created and reviewed. This CT exam was performed using one or more of the following dose reduction techniques: automated exposure control, adjustment of the mA and/or kV according to patient size, and/or use of iterative reconstruction technique. COMPARISON: No relevant prior studies available. FINDINGS: Bones/joints: No acute changes. Soft tissues: No significant abnormality noted. Orbits: No abnormality noted. Sinuses: Mild chronic bilateral maxillary sinus thickening noted right greater than left. Maximal thickness left floor 7 mm in the right 5 mm. IMPRESSION: Mild chronic bilateral maxillary sinus thickening. ACT 112: Negative or not required by law. Electronically signed by Ting Quiroz 08-13-2024 2:30 PM
[2024-08-14 06:30] LABS: BUN Creatinine Ratio 17.5 (10-20); Calcium 9.1 mg/dl (8.6-10.3); Creatinine Clr Calc Pharmacy 56.8 ml/min
[2024-08-14 06:35] LABS: Hematocrit (blood only) 24.4 % (42.0-52.0); Hemoglobin 8.3 g/dl (14.0-18.0); Mean Corpuscular Hemoglobin 34.6 pg (25.0-34.0); Mean Corpuscular Volume 101.7 fL (80.0-100.0); Mean Platelet Volume 11.5 fL (9.4-12.4); Platelet Count 51 K/uL (130-400); RDW Coefficient of Variation 13.8 % (11.5-14.5); RDW Standard Deviation 51.2 fL (36.4-46.3); White Blood Count 1.98 K/ul (4.8-10.8)
[2024-08-14 07:02] LABS: ALC (manual) 1.37 K/uL (1.2-3.4); ANC (manual) 0.22 K/uL (1.4-6.5); Basophils % (manual) 5 %; Blast # (manual) 0.08 K/uL (0-0); Blast Cells % (manual) 4 %; Hypogranular Neutrophils 2+; Lymphocytes # (manual) 1.37 K/uL (1.2-3.4); Lymphocytes % (manual) 69 %; Monocytes # (manual) 0.22 K/uL (0.11-0.59); Monocytes % (manual) 11 %; Neutrophils # (manual) 0.22 K/uL (1.40-6.50); Neutrophils % (manual) 11 %; Ovalocytes 1+; Polychromasia 1+; Tear Drop Cells 1+
[2024-08-14 11:36] LABS: Hep B Core Total Antibody Negative (Negative)
[2024-08-14 11:41] LABS: Hep B Surface Ag with confirm Negative (Negative)
[2024-08-14 11:46] LABS: Hep C Ab Rflx HepCQuant RNA Negative (Negative)
[2024-08-14] MEDS: CASPOFUNGIN 50 MG in SODIUM CHLORIDE 0.9% 250 ML IV SCH (11:49)
[2024-08-14 11:50] LABS: Hepatitis B Surface Ab Quant 3.83 mIU/mL (>or=10mIU/mL Immune); Hepatitis B Surface Antibody Non-Immune
--- NOTE | 2024-08-14 13:22 | CT Scan Report ---
Clinical History: Neutropenic fever Technique: Axial computed tomography images were obtained of the abdomen and pelvis without intravenous contrast. Comparison is made to the chest CT dated 08/10/2024 Findings: The liver is overall of normal size, attenuation, and contour with no sign of cirrhosis or significant fatty infiltration. No definite liver mass lesion is seen on this noncontrast study. The gallbladder appears unremarkable. No bile duct dilatation is noted. The spleen is of normal size. No focal splenic lesion is evident. The pancreas appears normal with no sign of acute or chronic pancreatitis and no mass lesion noted. The pancreatic duct is of normal caliber. The adrenal glands appear unremarkable. No renal or proximal ureteral calculi are seen. There is no hydronephrosis. There is mild bilateral perinephric stranding that could be chronic in nature. There is a 9 mm high attenuation rounded lesion in the mid right kidney The aorta is of normal caliber. No abdominal adenopathy is seen. The stomach appears normal. There is no sign of small bowel obstruction. There is a moderate sized left inguinal hernia into which the junction of the descending and sigmoid colon protrudes. No free intraperitoneal fluid or air is identified. No distal ureteral or bladder calculi are seen. No obvious bladder mass lesion is evident. The iliac arteries are of normal caliber. No pelvic adenopathy is noted. The prostate is mildly enlarged measuring 4.3 cm There are new small bilateral pleural effusions. There is bilateral lower lobe atelectasis. There is extensive coronary atherosclerosis Lumbar degenerative disc disease is seen. No fracture is identified. No focal osseous lesion is seen Impression: 1. New small bilateral pleural effusions and bilateral lower lobe atelectasis 2. Small hyperdense right renal lesion, indeterminate in nature but likely a benign proteinaceous or hemorrhagic cyst 3. Left inguinal hernia into which colon protrudes. There is no associated obstruction or strangulation 4. Mildly enlarged prostate 5. Extensive coronary atherosclerosis Electronically signed by Tristian Mueller 08-14-2024 13:22 PM
--- NOTE | 2024-08-14 14:57 | Hospitalist Progress Note ---
Date of Service August 14, 2024 Assessment & Plan (1) Neutropenic fever: Plan: Empiric cefepime. No source on admission. Urinalysis negative He continues to spike fevers. Blood cultures so far negative. Still neutropenic Neutropenic isolation precautions. Added IV caspofungin since still spiking fevers. Sputum culture back in March was positive for Betty. CT sinuses unremarkable CT chest was negative this hospitalization Consulted infectious disease CT abdomen ordered (2) Pancytopenia: Plan: Suspected underlying hematological cancer although like his previous admission he is refusing bone marrow biopsy as previously recommended by hematology therefore hematology consult was canceled here as he adamatly does not want this. HIV negative in March Consult hematology per ID recommendation for testing other than bone marrow biopsy like low cytometry. (3) Hypomagnesemia: Plan: Replaced (4) Acute kidney injury: Plan: Resolved with hydration Avoid nephrotoxic medications Monitor BMP Plan VTE Prophylaxis - chemical deferred pending serial platelet measurements Diet - regular Admission and Anticipated Discharge Date Admission Date: August 10, 2024 Subjective Patient was seen and examined at 9:55 AM. He continues to have fever spikes. But denies any major complaints other than some cough. Review of Systems Review of Systems: All systems reviewed & are unremarkable except as noted in Subjective Physical Exam Physical Exam: General: Awake, conversant Heart: S1, S2/regular rate and rhythm, no murmur rubs or gallops Lungs: Clear to auscultation bilaterally. Normal effort Abdomen: Soft/nontender/nondistended. No hepatosplenomegaly Extremities: No clubbing/cyanosis. No edema Behavior: Appropriate, cooperative Results & Data Results & Data Vital Signs (Past 12 Hours) Vital Signs Temp Pulse Resp BP Pulse Ox O2 Del Method O2 Flow Rate 08/14/24 14:47 119/69 08/14/24 12:55 37.6 C H 101 H 18 95 Room Air 08/14/24 08:06 37.3 C 109 H 18 98 Room Air 08/14/24 07:39 Nasal Cannula 2 08/14/24 07:17 38.5 C H 111 H 20 158/72 H 92 Room Air Laboratory Results Abnormal lab results 08/14/24 Range/Units 05:45 WBC 1.98 L (4.8-10.8) K/ul RBC 2.40 L (4.70-6.10) M/uL Hgb 8.3 L (14.0-18.0) g/dl Hct 24.4 L (42.0-52.0) % MCV 101.7 H (80.0-100.0) fL MCH 34.6 H (25.0-34.0) pg RDW Std Deviation 51.2 H (36.4-46.3) fL Plt Count 51 L (130-400) K/uL Neutrophils # (Manual) 0.22 L (1.40-6.50) K/uL Total Absolute Neuts 0.22 L* (1.4-6.5) K/uL Blast Cells # (Man) 0.08 H (0-0) K/uL Sodium 135 L (136-145) mmol/L Glucose 114 H (70-99(Fasting)) mg/dl PG Care Time/CCT Total # of Minutes Spent Total Time Spent with Patient: Total time spent is greater than 50% in coordination of care (as documented) at patient's floor/unit and/or counseling patient: Coding Level of Care Code 02492 SUB INP/OBS CARE 2/35MIN Diagnoses Neutropenic fever D70.9; R50.81 Pancytopenia D61.818 Hypomagnesemia E83.42 Acute kidney injury N17.9
--- NOTE | 2024-08-14 15:10 | Infectious Disease Consult ---
Date of Consultation August 14, 2024 Assessment & Plan (1) Neutropenic fever: (2) Pancytopenia: Plan ID Problem List: 1. Neutropenic fever 2. Pancytopenia with neutropenia 3. Incarceration 4. Antibiotic allergy reported to: erythromycin (reaction unknown) Impression: Silvia Kaiser is a 73-year-old male care home inmate with history of pancytopenia of unclear etiology (declined bone marrow biopsy on 04/07/24), HTN, CKD, recent ED visit on 08/09/24 for syncope, who presents to [facility] ED on 08/10/24 with fever and hypoxemia in the setting of neutropenia. ID is consulted for neutropenic fever. He was admitted in 03/2024 to [facility] for shortness of breath, found to have hypoxemia with pneumonia which was treated with levofloxacin. At that time he was noted to have leukopenia (ANC 1.5 1) and macrocytic anemia; he declined BMBx at that visit. He returned to the ED on 08/09/24 for syncope. He became hot and passed out in the care home kitchen; pt declines head trauma though reportedly bystanders saw him hit his head. CT head and CT C-spine without acute findings. He was discharged. He presents again to [facility] on 08/10 due to fever. Upon presentation, VS T37.6 HR 88 BP 136/72 Spo2 94% on RA Labs showed WBC 3.24 (ANC 540) Hgb 8.3 plt 52 Cr 1.20 LFTs wnl. UA showed 0-5 WBCs, 11-20 RBCs. Respiratory pathogen panel neg, MRSA nares neg. 08/10 CT chest with no acute intrathroracic findings, emphysema, mild cardiomegaly and dilation of the central pulmonary arteries c/f PAH. He was started on cefepime. On 08/11, he spiked multiple fevers Tmax 39.4, on 08/12 Tmax 37.9, and on 08/13 Tmax 38.7. 08/10 BCx remain NGTD. 08/12 CRP 24.75 Procal 0.76. 08/13 CT sinus showed mild bilateral maxillary sinus thickening. On 08/13, he was started on caspofungin. On 08/14, WBC 1.98 (ANC 220). At the time of evaluation on 08/14, the patient reports that he overall feels well. He reports that he does not really notice his fevers (no major sweats or chills accompanying). Denies any pain. Reports that he has an intermittent cough productive of whitish sputum but overall thinks the cough is getting better. Denies any other pain, abdominal pain, diarrhea, sinus/facial pain, rashes, wounds. The patient grew up in [place] and has lived in [place] and [place]. He traveled abroad to [facility] and [place] >30 years ago but no travel abroad since then. He has been incarcerated for >30 years. He reports no history of known exposure to TB and believes his annual PPDs have all been negative. Is not aware of any animal/rodent exposure. Discussion Pt with neutropenia of unclear etiology, though appears to be a condition that has progressed over the last several months and is worrisome for possible heme malignancy. Appreciate hematology consult although pt has declined BMBx in the past, query whether peripheral flow and other studies may aid in establishing a diagnosis. Pt with ANC <500; given that the etiology of his neutropenia is unclear, it is also unclear what his duration of neutropenia is (note ANC >500 on admit) as well as whether the patient may have functional neutropenia (e.g., from a heme malignancy). Thus far, BCx NGTD. Pt without localizing symptoms except for an intermittent cough productive of white sputum. CT chest, A/P, and sinuses have been overall unrevealing CT sinus with mild chronic bilaterall maxillary sinus thickening, CT chest without intrathoracic findings to suggest fungal pna. Despite cefepime, the patient continues to have fevers. Will send fungal biomarkers. Would continue cefepime for now. Pt without skin rashes/wounds or oral lesions to suggest high risk for MRSA thus hold off on adding vancomycin. Given neutropenia for >4 days without established bacterial infection, reasonable to continue caspofungin for now (given that CT chest not suggestive of fungal infection) while awaiting repeat Cx. However, if cough continues, would consider repeat CT scan and if any c/f fungal infection may consider voriconazole. It pt continues to have prolonged neutropenia and fevers resolve, anticipate starting abx for bacterial neutropenic ppx to continue while ANC <500. Recommendations: - Continue cefepime for now - Continue caspofungin for now - If Bcx remain negative and fevers resolve, then anticipate starting levofloxacin for neutropenic prophylaxis and to continue while ANC <500 - Consider starting valacyclovir for neutropenic prophylaxis as well - Send HIV, quantiferon, hepatitis B and C, Histo UrAg, [id number], Aspergillus Ag, CMV serum PCR, serum CrAg - Send SpCx if able, repeat BCx - F/u BCx from 08/10 until finalized to ensure negative - If fevers and cough persist, would obtain repeat CT chest - Appreciate hematology consult although pt has declined BMBx in the past, query whether peripheral flow and other studies may aid in establishing a diagnosis - Ensure close follow up with primary care and hematology after discharge ID will continue to follow. Orquidea Brewer MD, S Infectious Diseases [facility]/ID Connect ID Connect direct line: [phone] Consultation Information Consultation was provided via telemedicine using two-way real-time interactive telecommunication between the patient and the telemedicine provider. For the duration of the visit, the provider was performing the assessment from a different facility than the patient. This includesuse of bluetooth stethoscope forauscultationperformed by the telepresenter that the telemedicine provider can hear if described in the physical exam. Film Processing Supervisor contact information: Please call ID Connect Call Center . (Phone Number For Physician Use Only) After establishing a telemedicine visit, patient was: Patient was verified with two unique identifiers, Patient/authorized rep acknowledged consent and understanding and Gave permission to continue telehealth session Time Spent with Patient: Initial => 75 min History of Present Illness Reason for Consultation: Neutropenic fever Attending Physician: Antony Araujo MD History of Present Illness Silvia Kaiser is a 73-year-old male care home inmate with history of pancytopenia of unclear etiology (declined bone marrow biopsy on 04/07/24), HTN, CKD, recent ED visit on 08/09/24 for syncope, who presents to [facility] ED on 08/10/24 with fever and hypoxemia in the setting of neutropenia. ID is consulted for neutropenic fever. He was admitted in 03/2024 to [facility] for shortness of breath, found to have hypoxemia with pneumonia which was treated with levofloxacin. At that time he was noted to have leukopenia (ANC 1.5 1) and macrocytic anemia; he declined BMBx at that visit. He returned to the ED on 08/09/24 for syncope. He became hot and passed out in the care home kitchen; pt declines head trauma though reportedly bystanders saw him hit his head. CT head and CT C-spine without acute findings. He was discharged. He presents again to [facility] on 08/10 due to fever. Upon presentation, VS T37.6 HR 88 BP 136/72 Spo2 94% on RA Labs showed WBC 3.24 (ANC 540) Hgb 8.3 plt 52 Cr 1.20 LFTs wnl. UA showed 0-5 WBCs, 11-20 RBCs. Respiratory pathogen panel neg, MRSA nares neg. 08/10 CT chest with no acute intrathroracic findings, emphysema, mild cardiomegaly and dilation of the central pulmonary arteries c/f PAH. He was started on cefepime. On 08/11, he spiked multiple fevers Tmax 39.4, on 08/12 Tmax 37.9, and on 08/13 Tmax 38.7. 08/10 BCx remain NGTD. 08/12 CRP 24.75 Procal 0.76. 08/13 CT sinus showed mild bilateral maxillary sinus thickening. On 08/13, he was started on caspofungin. On 08/14, WBC 1.98 (ANC 220). At the time of evaluation on 08/14, the patient reports that he overall feels well. He reports that he does not really notice his fevers (no major sweats or chills accompanying). Denies any pain. Reports that he has an intermittent cough productive of whitish sputum but overall thinks the cough is getting better. Denies any other pain, abdominal pain, diarrhea, sinus/facial pain, rashes, wounds. The patient grew up in [place] and has lived in [place]. He traveled abroad to [facility] and [place] >30 years ago but no travel abroad since then. He has been incarcerated for >30 years. He reports no history of known exposure to TB and believes his annual PPDs have all been negative. Is not aware of any animal/rodent exposure. Allergies Allergy/AdvReac Type Severity Reaction Status Date / Time erythromycin base Allergy Unknown Unknown Verified 08/10/24 15:21 pepper (genus Capsicum) AdvReac Unknown "OC Pinnacle" Verified 08/10/24 15:21 -- use of OC spray is contraindicated Home Medications Medication Instructions Recorded Confirmed Type albuterol sulfate 90 mcg/actuation 2 puff inhalation QID PRN 04/04/24 08/10/24 History aerosol inhaler Shortness Of Breath ciclesonide 160 mcg/actuation 1 puff inhalation BID 04/04/24 08/10/24 History aerosol inhaler (Alvesco) cyanocobalamin (vitamin B-12) 500 500 mcg PO DAILY 08/10/24 08/10/24 History mcg tablet (Vitamin B-12) lisinopril 10 mg tablet 10 mg PO DAILY 08/10/24 08/10/24 History rosuvastatin 10 mg tablet 10 mg PO DAILY 08/10/24 08/10/24 History Patient History Medical History No pertinent family history Asthma LLL pneumonia Surgical History No pertinent past surgical history Social History Smoking Status: Former smoker Tobacco Type: Cigarettes Second Hand Exposure: Yes; Do You Dip or Chew Tobacco: No; Tobacco Cessation Education Requested by Patient: No Hx Alcohol Use: No Hx Substance Use: No Preferred Language: Frisian Communication Ability: Effective Substation Technician Required: No Beliefs That Will Affect Care: None Current Living Situation: Other Current Living Situation Comment: care home Other Information That Helps Us Care for You: No Feels Safe at Home: Yes Safety Concerns: Feels Safe At This Time Assistive Devices: None Physical Exam Physical Exam: Exam obtained with aid of in-person telepresenter. General: Well-appearing, no acute distress HEENT: Conjunctivae non-injected, sclerae anicteric, MMM, OP clear. No facial/sinus pain. Abd: Soft, nontender, nondistended. Normal bowel sounds throughout. Ext: Warm and well-perfused, no edema. No joint warmth or effusions noted. Skin: No rashes or lesions. Neuro: Alert & interactive. Grossly non-focal. Psych: Pleasant, appropriate. Results & Data Vital Signs (Past 12 Hours) Vital Signs Temp Pulse Resp BP Pulse Ox O2 Del Method O2 Flow Rate 08/14/24 14:47 119/69 08/14/24 12:55 37.6 C H 101 H 18 95 Room Air 08/14/24 08:06 37.3 C 109 H 18 98 Room Air 08/14/24 07:39 Nasal Cannula 2 08/14/24 07:17 38.5 C H 111 H 20 158/72 H 92 Room Air Diagnostic Findings Diagnostics: 08/14 CT A/P with contrast 1. New small bilateral pleural effusions and bilateral lower lobe atelectasis 2. Small hyperdense right renal lesion, indeterminate in nature but likely a benign proteinaceous or hemorrhagic cyst 3. Left inguinal hernia into which colon protrudes. There is no associated obstruction or strangulation 4. Mildly enlarged prostate 5. Extensive coronary atherosclerosis 08/13 CT sinus Mild chronic bilateral maxillary sinus thickening. 08/10 CTA Chest 1. No pulmonary emboli identified. 2. No acute intrathoracic findings. 3. Mild cardiomegaly and mild dilatation of the central pulmonary arteries which raises the possibility of pulmonary arterial hypertension. 4. Emphysema. Micro Data: 08/10 BCx x2: NGTD 08/10 MRSA nares: neg 08/10 respiratory pathogen panel: neg Prior micro 04/05/24 sputum: Betty albicans 04/05/24 BCx x2: NG Antibiotic Summary: Cefepime (08/10 present) Caspofungin (08/13 present)
--- NOTE | 2024-08-14 16:12 | Oncology Consultation ---
Date of Consultation August 14, 2024 Assessment & Plan (1) Pancytopenia: + I would like to establish transfusion parameters. Transfuse to maintain hemoglobin greater than 7 g/dL, transfuse to maintain platelets greater than 10,000 or if the patient is actively bleeding. Since the patient is profoundly neutropenic with a neutrophil count of only 0.22, recommend prophylactic antibiotics including levofloxacin, 500 mg p.o. daily, acyclovir 8 200 mg p.o. twice daily, Diflucan, 200 mg p.o. twice daily. Given that there are serious concerns for underlying bone marrow failure as well as peripheral blasts I strongly recommend a bone marrow biopsy however the patient has refused until then. In the absence of a tissue diagnosis I would not have for treatment plan for the patient and in that case the recommendation is going to be consideration for palliative/hospice care given that his bone marrow is failing . Continue supportive care with above-mentioned transfusion parameters Plan thank you for this interesting hematological consult. Total of 60 minutes were spent in counseling, coordination of care, review of prior records. History of Present Illness Reason for Consultation: pancytopenia Attending Physician: Antony Araujo MD History of Present Illness Silvia is a very pleasant 73-year-old male who had initially presented to [facility] in the summer with pancytopenia and I had recommended a bone marrow biopsy however he refused. He presented again with severe anemia as well as thrombocytopenia. All of his counts are worsening. He is very tired and fatigued. His appetite is poor. Allergies Allergy/AdvReac Type Severity Reaction Status Date / Time erythromycin base Allergy Unknown Unknown Verified 08/10/24 15:21 pepper (genus Capsicum) AdvReac Unknown "OC Umbarger" Verified 08/10/24 15:21 -- use of OC spray is contraindicated Home Medications Medication Instructions Recorded Confirmed Type albuterol sulfate 90 mcg/actuation 2 puff inhalation QID PRN 04/04/24 08/10/24 History aerosol inhaler Shortness Of Breath ciclesonide 160 mcg/actuation 1 puff inhalation BID 04/04/24 08/10/24 History aerosol inhaler (Alvesco) cyanocobalamin (vitamin B-12) 500 500 mcg PO DAILY 08/10/24 08/10/24 History mcg tablet (Vitamin B-12) lisinopril 10 mg tablet 10 mg PO DAILY 08/10/24 08/10/24 History rosuvastatin 10 mg tablet 10 mg PO DAILY 08/10/24 08/10/24 History Patient History Medical History No pertinent family history Asthma LLL pneumonia Surgical History No pertinent past surgical history Social History Smoking Status: Former smoker Tobacco Type: Cigarettes Second Hand Exposure: Yes; Do You Dip or Chew Tobacco: No; Tobacco Cessation Education Requested by Patient: No Hx Alcohol Use: No Hx Substance Use: No Preferred Language: Luxembourgish Communication Ability: Effective Accident Examiner Required: No Beliefs That Will Affect Care: None Current Living Situation: Other Current Living Situation Comment: retirement Other Information That Helps Us Care for You: No Feels Safe at Home: Yes Safety Concerns: Feels Safe At This Time Assistive Devices: None Review of Systems Review of Systems: Fatigue, tired, low energy Constitutional: as per Subjective / HPI Eyes: as per Subjective / HPI Ear, Nose, Mouth, Throat: as per Subjective / HPI Respiratory: as per Subjective / HPI Cardiovascular: as per Subjective / HPI Gastrointestinal: as per Subjective / HPI Genitourinary: + as per Subjective / HPI Musculoskeletal: as per Subjective / HPI Integumentary: as per Subjective / HPI Neurologic: as per Subjective / HPI Psychiatric: as per Subjective / HPI Endocrine: as per Subjective / HPI Hematologic / Lymphatic: as per Subjective / HPI Allergy / Immunological: as per Subjective / HPI Physical Exam Constitutional: WD/WN, vitals as above Eyes: PERRL, conjunctivae normal, anicteric sclerae ENMT: external ear and nose normal, oropharynx normal Neck: trachea midline, no thyromegaly Respiratory: normal respiratory effort, lungs clear to auscultation Cardiovascular: RRR, no murmur, no edema Gastrointestinal (Abdomen): normal bowel sounds, soft, nontender, no hepatosplenomegaly Musculoskeletal: no cyanosis or clubbing, extremities motor strength 5/5 Skin: no rashes, warm and dry Neurologic: patellar DTR's 2+ bilat, sensation intact Psychiatric: A+Ox3, euthymic affect Genitourinary: no testicular masses, no penis abnormality Results & Data Vital Signs (Past 12 Hours) Vital Signs Temp Pulse Resp BP Pulse Ox O2 Del Method O2 Flow Rate 08/14/24 14:47 119/69 08/14/24 12:55 37.6 C H 101 H 18 95 Room Air 08/14/24 08:06 37.3 C 109 H 18 98 Room Air 08/14/24 07:39 Nasal Cannula 2 08/14/24 07:17 38.5 C H 111 H 20 158/72 H 92 Room Air
[2024-08-15 07:07] LABS: Hematocrit (blood only) 24.2 % (42.0-52.0); Hemoglobin 8.2 g/dl (14.0-18.0); Mean Corpuscular Hemoglobin 34.6 pg (25.0-34.0); Mean Corpuscular Hgb Conc 33.9 g/dL (32.0-36.0); Mean Corpuscular Volume 102.1 fL (80.0-100.0); Mean Platelet Volume 10.7 fL (9.4-12.4); Platelet Count 52 K/uL (130-400); RDW Coefficient of Variation 14.3 % (11.5-14.5); RDW Standard Deviation 53.2 fL (36.4-46.3); Red Blood Count 2.37 M/uL (4.70-6.10); White Blood Count 1.72 K/ul (4.8-10.8)
[2024-08-15 07:17] LABS: Creatinine Clr Calc Pharmacy 61.6 ml/min; Potassium 4.3 mmol/L (3.5-5.1)
[2024-08-15 07:59] LABS: ALC (manual) 1.31 K/uL (1.2-3.4); ANC (manual) 0.14 K/uL (1.4-6.5); Basophils # (manual) 0.09 K/uL (0-0.2); Basophils % (manual) 5 %; Blast # (manual) 0.03 K/uL (0-0); Blast Cells % (manual) 2 %; Hypogranular Neutrophils 1+; Lymphocytes # (manual) 1.31 K/uL (1.2-3.4); Lymphocytes % (manual) 76 %; Monocytes # (manual) 0.15 K/uL (0.11-0.59); Monocytes % (manual) 9 %; Neutrophils # (manual) 0.14 K/uL (1.40-6.50); Neutrophils % (manual) 8 %; Ovalocytes 1+
--- NOTE | 2024-08-15 10:54 | Infectious Disease Progress Nt ---
Date of Service August 15, 2024 Assessment & Plan (1) Neutropenic fever: (2) Pancytopenia: Plan Impression: Silvia Kaiser is a 73-year-old male [facility] inmate with history of pancytopenia of unclear etiology (declined bone marrow biopsy on 04/07/24), HTN, CKD, recent ED visit on 08/09/24 for syncope, who presents to [facility] ED on 08/10/24 with fever and hypoxemia in the setting of neutropenia. ID is consulted for neutropenic fever. He was admitted in 03/2024 to [facility] for shortness of breath, found to have hypoxemia with pneumonia which was treated with levofloxacin. At that time he was noted to have leukopenia (ANC 1.5 1) and macrocytic anemia; he declined BMBx at that visit. He returned to the ED on 08/09/24 for syncope. He became hot and passed out in the fdc kitchen; pt declines head trauma though reportedly bystanders saw him hit his head. CT head and CT C-spine without acute findings. He was discharged. He presents again to [facility] on 08/10 due to fever. Upon presentation, VS T37.6 HR 88 BP 136/72 Spo2 94% on RA Labs showed WBC 3.24 (ANC 540) Hgb 8.3 plt 52 Cr 1.20 LFTs wnl. UA showed 0-5 WBCs, 11-20 RBCs. Respiratory pathogen panel neg, MRSA nares neg. 08/10 CT chest with no acute intrathroracic findings, emphy sema, mild cardiomegaly and dilation of the central pulmonary arteries c/f PAH. He was started on cefepime. On 08/11, he spiked multiple fevers Tmax 39.4, on 08/12 Tmax 37.9, and on 08/13 Tmax 38.7. 08/10 BCx remain NGTD. 08/12 CRP 24.75 Procal 0.76. 08/13 CT sinus showed mild bilateral maxillary sinus thickening. On 08/13, he was started on caspofungin. On 08/14, WBC 1.98 (ANC 220). At the time of evaluation on 08/14, the patient reports that he overall feels well. He reports that he does not really notice his fevers (no major sweats or chills accompanying). Denies any pain. Reports that he has an intermittent cough productive of whitish sputum but overall thinks the cough is getting better. Denies any other pain, abdominal pain, diarrhea, sinus/facial pain, rashes, wounds. The patient grew up in [place] and has lived in [place] and [place]. [place] >[place] years ago but no travel abroad since then. He has been incarcerated for >30 years. He reports no history of known exposure to TB and believes his annual PPDs have all been negative. Is not aware of any animal/rodent exposure. Discussion Pt with progressive neutropenia of unclear etiology, that has progressed over the last several months and is worrisome for possible heme malignancy, especially given peripheral blasts. Evaluated by Dr. 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 Heme discussed that in absence of tissue diagnosis, then without treatment plan and pts trajectory may be palliative/hospice as a result Pt with ANC <500, and furthermore given likely heme malignancy he may have had longstanding functional neutropenia. BCx NGTD. Pt without localizing symptoms except for an intermittent cough productive of white sputum. CT chest, A/P, and sinuses have been overall unrevealing CT sinus with mild chronic bilaterall maxillary sinus thickening, CT chest without intrathoracic findings to suggest fungal pna. Pt initially remained febrile despite cefepime, and caspofungin was added after ~4 days of fevers. His fever curve is tentatively improving. Would continue these for now while inpatient. Pt without skin rashes/wounds or oral lesions to suggest high risk for MRSA thus hold off on adding vancomycin. follow infectious studies including fungal biomarkers (no e/o fungal pna on CT chest, though if fevers persist would repeat). In the meantime, would start valacyclovir and posaconazole (or voriconazole if posaconazole not covered) for antiviral and antifungal/anti-mold ppx (antimold ppx indicated given possible suspected heme malignancy including leukemia).If improving and discharging, would change from cefepime to levofloxacin for bacterial neutropenic ppx to continue while ANC <500. Recommendations: - Can continue cefepime and caspofungin for now - If fevers resolve and patient discharges, would change to prophylactic levofloxacin 500 mg PO daily (antibacterial), and would continue prophylactic abx while ANC remains <500: - Start valacyclovir 500 mg PO BID (antiviral ppx) - Start posaconazole [address] tablet PO daily (antifungal/anti-mold ppx; if not covered by insurance can do voriconazole 6 mg/kg PO q12h x 2 doses loading dose, followed by 4 mg/kg PO q12h for maintenance) - F/u: quantiferon, Histo UrAg, [id number], Aspergillus Ag, CMV serum PCR, serum CrAg - Send SpCx if able, repeat BCx - F/u BCx from 08/10 until finalized to ensure negative - If fevers and cough recur, would obtain repeat CT chest - Ensure close follow up with primary care and hematology (if within [facility]) after discharge ID will continue to follow. Orquidea Brewer MD, [facility] Infectious Diseases [facility]/ID Connect ID Connect direct line: [phone] Admission and Anticipated Discharge Date Admission Date: August 10, 2024 Subjective This patient recommendation is based on a telemedicine consult request which was completed asynchronously through chart review and information provided by the primary physician. The patient was not seen or examined today. The evaluation is consultative in nature and all patient care and treatment decisions can either be accepted or rejected by the patient's primary hospital-based treating physician using their own independent medical judgment for their patient. Time Spent Reviewing Chart: 31+ minutes - T38.5 this AM, subsequently afebrile, WBC 1.72 (ANC 140); peripheral blasts ranging 2-4%. Evaluated by Dr. Rucker from heme/onc, pt likely to have hematologic malignancy given peripheral blasts however pt declines bone marrow biopsy. Heme discussed that in absence of tissue diagnosis, then without treatment plan and pts trajectory may be palliative/hospice as a result Results & Data Vital Signs (Past 12 Hours) Vital Signs Temp Pulse Resp BP Pulse Ox O2 Del Method 08/15/24 07:35 Room Air 08/15/24 07:16 36.7 C 99 H 18 154/81 H 98 Room Air Diagnostic Findings Diagnostics: 08/14 CT A/P with contrast 1. New small bilateral pleural effusions and bilateral lower lobe atelectasis 2. Small hyperdense right renal lesion, indeterminate in nature but likely a benign proteinaceous or hemorrhagic cyst 3. Left inguinal hernia into which colon protrudes. There is no associated obstruction or strangulation 4. Mildly enlarged prostate 5. Extensive coronary atherosclerosis 08/13 CT sinus Mild chronic bilateral maxillary sinus thickening. 08/10 CTA Chest 1. No pulmonary emboli identified. 2. No acute intrathoracic findings. 3. Mild cardiomegaly and mild dilatation of the central pulmonary arteries which raises the possibility of pulmonary arterial hypertension. 4. Emphysema. Micro Data: 08/14 BCx x2: PEND 08/14 sputum Cx: PEND 08/14 quantiferon: PEND 08/14 Aspergillus Ag: PEND 08/14 [id number]: PEND 08/14 HIV: neg 08/14 Histo UrAg: neg 08/14 HCV Ab: neg 08/14 hep B core total Ab: neg; HbsAb neg; HbsAg neg 08/14 CMV serum quant PCR: PEND 08/14 serum CrAg: PEND 08/10 BCx x2: NGTD 08/10 MRSA nares: neg 08/10 respiratory pathogen panel: neg Prior micro 04/05/24 sputum: Betty albicans 04/05/24 BCx x2: NG Antibiotic Summary: Cefepime (08/10 present) Caspofungin (08/13 present) Valacyclovir (08/15 present) Voriconazole (?08/15 present)
[2024-08-15] MEDS: CASPOFUNGIN 50 MG in SODIUM CHLORIDE 0.9% 250 ML IV SCH (11:58)
--- NOTE | 2024-08-15 14:28 | Hospitalist Progress Note ---
Date of Service August 15, 2024 Assessment & Plan (1) Neutropenic fever: Plan: Empiric cefepime. No source identified. Urinalysis negative He continues to spike fevers although has not had his fever today yet. Blood cultures so far negative. Still neutropenic Neutropenic isolation precautions. Added IV caspofungin since still spiking fevers. Sputum culture back in March was positive for Betty. CT sinuses unremarkable CT chest was negative this hospitalization CT abdomen negative Infectious disease on board If fevers resolved, ID recommends prophylactic levofloxacin 500 mg p.o. daily. Valtrex 500 p.o. twice daily started for antiviral prophylaxis Voriconazole for antifungal prophylaxis will be started per ID recommendations as well (2) Pancytopenia: Plan: Suspected underlying hematological cancer although like his previous admission he is refusing bone marrow biopsy as previously recommended by hematology therefore hematology consult was canceled here as he adamatly does not want t his. HIV negative in March Per hematology, there is no option for any other testing. Bone marrow biopsy is needed for further diagnostic evaluation. I spoke to the patient about switching goals of care to comfort care if we were not going to pursue the diagnosis. He then agreed to a bone marrow biopsy Bone marrow biopsy has been ordered. (3) Hypomagnesemia: Plan: Replaced (4) Acute kidney injury: Plan: Resolved with hydration Avoid nephrotoxic medications Monitor BMP Plan VTE Prophylaxis - chemical deferred pending serial platelet measurements Diet - regular Admission and Anticipated Discharge Date Admission Date: August 10, 2024 Subjective Patient was seen and examined at 11:45 AM. Noted that he did not spike a fever today yet. He does not have any major complaints other than some cough. I had a discussion with him about him refusing a bone marrow biopsy. I explained to him that our only option would be to get palliative care involved so that we can focus on comfort measures. Soon after this discussion, he said he would be willing to undergo a bone marrow biopsy. Review of Systems Review of Systems: All systems reviewed & are unremarkable except as noted in Subjective Physical Exam Physical Exam: General: Awake, conversant Heart: S1, S2/regular rate and rhythm, no murmur rubs or gallops Lungs: Clear to auscultation bilaterally. Normal effort Abdomen: Soft/nontender/nondistended. No hepatosplenomegaly Extremities: No clubbing/cyanosis. No edema Behavior: Appropriate, cooperative Results & Data Results & Data Vital Signs (Past 12 Hours) Vital Signs Temp Pulse Resp BP Pulse Ox O2 Del Method 08/15/24 07:35 Room Air 08/15/24 07:16 36.7 C 99 H 18 154/81 H 98 Room Air Laboratory Results Abnormal lab results 08/15/24 Range/Units 06:35 WBC 1.72 L (4.8-10.8) K/ul RBC 2.37 L (4.70-6.10) M/uL Hgb 8.2 L (14.0-18.0) g/dl Hct 24.2 L (42.0-52.0) % MCV 102.1 H (80.0-100.0) fL MCH 34.6 H (25.0-34.0) pg RDW Std Deviation 53.2 H (36.4-46.3) fL Plt Count 52 L (130-400) K/uL Neutrophils # (Manual) 0.14 L (1.40-6.50) K/uL Total Absolute Neuts 0.14 L* (1.4-6.5) K/uL Blast Cells # (Man) 0.03 H (0-0) K/uL Glucose 125 H (70-99(Fasting)) mg/dl PG Care Time/CCT Total # of Minutes Spent Total Time Spent with Patient: Total time spent is greater than 50% in coordination of care (as documented) at patient's floor/unit and/or counseling patient: Coding Level of Care Code 47091 SUB INP/OBS CARE 2/35MIN Diagnoses Neutropenic fever D70.9; R50.81 Pancytopenia D61.818 Hypomagnesemia E83.42 Acute kidney injury N17.9
[2024-08-15] MEDS: CEFEPIME 2000MG 2,000 MG/20 ML SYR IV SCH (15:48)
[2024-08-15] MEDS: VORICONAZOLE 200 MG TABLET PO SCH (15:57)
[2024-08-15] MEDS: valACYclovir HCL 500 MG TABLET PO SCH (20:39)
[2024-08-16 06:35] LABS: BUN Creatinine Ratio 16.7 (10-20); Calcium 9.2 mg/dl (8.6-10.3); Creatinine Clr Calc Pharmacy 54.2 ml/min; Potassium 4.1 mmol/L (3.5-5.1)
[2024-08-16 06:41] LABS: Hematocrit (blood only) 24.4 % (42.0-52.0); Hemoglobin 8.1 g/dl (14.0-18.0); Mean Corpuscular Hemoglobin 33.9 pg (25.0-34.0); Mean Corpuscular Hgb Conc 33.2 g/dL (32.0-36.0); Mean Corpuscular Volume 102.1 fL (80.0-100.0); Mean Platelet Volume 12.1 fL (9.4-12.4); Platelet Count 56 K/uL (130-400); RDW Coefficient of Variation 13.9 % (11.5-14.5); RDW Standard Deviation 52.3 fL (36.4-46.3); Red Blood Count 2.39 M/uL (4.70-6.10); White Blood Count 1.62 K/ul (4.8-10.8)
[2024-08-16 06:45] LABS: ALC (manual) 1.23 K/uL (1.2-3.4); ANC (manual) 0.16 K/uL (1.4-6.5); Basophils # (manual) 0.11 K/uL (0-0.2); Basophils % (manual) 7 %; Blast # (manual) 0.03 K/uL (0-0); Blast Cells % (manual) 2 %; Lymphocytes # (manual) 1.23 K/uL (1.2-3.4); Lymphocytes % (manual) 76 %; Metamyelocytes # (manual) 0.02 K/uL (0-0); Metamyelocytes % (manual) 1 %; Monocytes # (manual) 0.06 K/uL (0.11-0.59); Monocytes % (manual) 4 %; Neutrophils # (manual) 0.16 K/uL (1.40-6.50); Neutrophils % (manual) 10 %; Ovalocytes 1+; Tear Drop Cells 1+
[2024-08-16] MEDS: fentaNYL citrate PF 100 MCG/2 ML VIAL ONE (09:44)
[2024-08-16] MEDS: ACETAMINOPHEN 1000 MG/100 ML IV IV ONE (09:45)
[2024-08-16 12:28] LABS: Quantiferon Mitogen-NIL 3.94 IU/mL; Quantiferon NIL 0.03 IU/mL; Quantiferon TB Gold Plus NEGATIVE (NEGATIVE); Quantiferon TB1-NIL <0.00 IU/mL; Quantiferon TB2-NIL <0.00 IU/mL
--- NOTE | 2024-08-16 13:48 | CT Scan Report ---
CT-guided bone marrow biopsy INDICATION: Pancytopenia PROCEDURE: Procedure and risks were explained. Informed consent was obtained. A final timeout was com pleted. The patient was placed prone on the CT exam table. The left gluteal region was prepped and dr aped in sterile fashion. 1% lidocaine was utilized for skin anesthesia. Utilizing CT guidance, an 11-gauge bone biopsy needle was advanced into the left iliac bone. Multiple aspirates and one bone core was obtained and given to the lab. The needle was removed and Band-Aid a pplied. The patient tolerated the procedure well. Vital signs will be monitored on the floor. IMPRESSION: Bone marrow biopsy as above. Performed, dictated, and signed by Donald Calwdell PA-C; to be co-signed by Dr. Edinson Burch. Electronically signed by: Edinson Burch M.D. 08/16/2024 3:30 PM
--- NOTE | 2024-08-16 13:50 | Hematology/Oncology Prog Note ---
Date of Service August 16, 2024 Assessment & Plan (1) Acute leukemia: Plan: had a lengthy discussion with the patient. Informed him that the preliminary diagnosis acute leukemia given that there are more than 20% blasts in the marrow. discussed the options going forward as well as prognosis of his disease. Explained to him at this point we do not treat acute leukemias and patient in our hospital. The patient wants to be treated for his acute leukemia which will be most likely along the lines of Vidaza plus venetoclax or 7+3. Given the high acuity nature of his leukemia have recommended transfer to a tertiary Medical Center such as [place]. This was discussed with the patient as well as the hospital internal medicine Dr. Miguel hematology will continue to follow the patient make appropriate re commendations. Thank you for this interesting hematological consult Admission and Anticipated Discharge Date Admission Date: August 10, 2024 Subjective no new symptoms, no fever or chills, no night sweats, he continues to eat and drink well. No bleeding or bruising Review of Systems Review of Systems: All systems reviewed & are unremarkable except as noted in HPI & below Constitutional: as per Subjective / HPI Eyes: as per Subjective / HPI Ear, Nose, Mouth, Throat: as per Subjective / HPI Respiratory: as per Subjective / HPI Cardiovascular: as per Subjective / HPI Gastrointestinal: as per Subjective / HPI Genitourinary: + as per Subjective / HPI Musculoskeletal: as per Subjective / HPI Integumentary: as per Subjective / HPI Neurologic: as per Subjective / HPI Psychiatric: as per Subjective / HPI Endocrine: as per Subjective / HPI Hematologic / Lymphatic: as per Subjective / HPI Physical Exam Constitutional: WD/WN, vitals as above Eyes: PERRL, conjunctivae normal, anicteric sclerae ENMT: external ear and nose normal, oropharynx normal Neck: trachea midline, no thyromegaly Respiratory: normal respiratory effort, lungs clear to auscultation Cardiovascular: RRR, no murmur, no edema Gastrointestinal (Abdomen): normal bowel sounds, soft, nontender, no hepatosplenomegaly Musculoskeletal: no cyanosis or clubbing, extremities motor strength 5/5 Skin: no rashes, warm and dry Results & Data Vital Signs (Past 12 Hours) Vital Signs Temp Pulse Resp BP Pulse Ox O2 Del Method 08/16/24 11:52 112 H 18 142/77 H 95 Room Air 08/16/24 11:00 106 H 18 118/72 97 Room Air 08/16/24 10:12 109 H 18 123/74 94 Room Air 08/16/24 09:45 37.1 C 119 H 18 152/82 H 94 Room Air 08/16/24 07:31 Room Air 08/16/24 07:14 36.7 C 104 H 18 153/77 H 97 Room Air
--- NOTE | 2024-08-16 14:00 | Infectious Disease Progress Nt ---
Date of Service August 16, 2024 Assessment & Plan (1) Neutropenic fever: (2) Pancytopenia: Plan ID Problem List: 1. Neutropenic fever 2. 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 Incarceration 4. Antibiotic allergy reported to: erythromycin (reaction unknown) 5. Hepatitis B non-immune (negative core total Ab, negative sAb) Impression: Silvia Kaiser is a 73-year-old male custodial inmate with history of pancytopenia of unclear etiology (declined bone marrow biopsy on 04/07/24), HTN, CKD, recent ED visit on 08/09/24 for syncope, who presents to [facility] ED on 08/10/24 with fever and hypoxemia in the setting of neutropenia. ID is consulted for neutropenic fever. He was admitted in 03/2024 to [facility] for shortness of breath, found to have hypoxemia with pneumonia which was treated with levofloxacin. At that time he was noted to have leukopenia (ANC 1.5 1) and macrocytic anemia; he declined BMBx at that visit. He returned to the ED on 08/09/24 for syncope. He became hot and passed out in the custodial kitchen; pt declines head trauma though reportedly bystanders saw him hit his head. CT head and CT C-spine without acute findings. He was discharged. He presents again to [facility] on 08/10 due to fever. Upon presentation, VS T37.6 HR 88 BP 136/72 Spo2 94% on RA Labs showed WBC 3.24 (ANC 540) Hgb 8.3 plt 52 Cr 1.20 LFTs wnl. UA showed 0-5 WBCs, 11-20 RBCs. Respiratory pathogen panel neg, MRSA nares neg. 08/10 CT chest with no acute intrathroracic findings, emphysema, mild cardiomegaly and dilation of the central pulmonary arteries c/f PAH. He was started on cefepime. On 08/11, he spiked multiple fevers Tmax 39.4, on 08/12 Tmax 37.9, and on 08/13 Tmax 38.7. 08/10 BCx remain NGTD. 08/12 CRP 24.75 Procal 0.76. 08/13 CT sinus showed mild bilateral maxillary sinus thickening. On 08/13, he was started on caspofungin. On 08/14, WBC 1.98 (ANC 220). At the time of evaluation on 08/14, the patient reports that he overall feels well. He reports that he does not really notice his fevers (no major sweats or chills accompanying). Denies any pain. Reports that he has an intermittent cough productive of whitish sputum but overall thinks the cough is getting better. Denies any other pain, abdominal pain, diarrhea, sinus/facial pain, rashes, wounds. The patient grew up in [place] and has lived in [place] and [place]. [place] [employer] >30 years ago but no travel abroad since then. He has been incarcerated for >30 years. He reports no history of known exposure to TB and believes his annual PPDs have all been negative. Is not aware of any animal/rodent exposure. Discussion Pt with progressive neutropenia of unclear etiology that has progressed over the last several months and is worrisome for possible heme malignancy, especially given peripheral blasts. Pt previously declined BMBx but is now amenable. Pt with ANC <500, and furthermore given likely heme malignancy he may have longstanding functional neutropenia. BCx NGTD. Pt without localizing symptoms except for an intermittent cough productive of white sputum. CT chest, A/P, and sinuses have been overall unrevealing CT sinus with mild chronic bilaterall maxillary sinus thickening, CT chest without intrathoracic findings to suggest fungal pna. Pt initially remained febrile despite cefepime, and caspofungin was added after ~4 days of fevers. His fevers have resolved and BCx have remained negative. Pt without skin rashes/wounds or oral lesions to suggest high risk for MRSA thus hold off on adding vancomycin. Although pt without e/o fungal pna on CT chest, given suspicion for heme malignancy and longstanding functional neutropenia, pt at higher risk of mold infection. This admission, have started valacyclovir for antiviral ppx and voriconazole for anti-mold ppx can stop caspofungin now that pt on voriconazole. QTc of 420 on 08/10. If improving and discharging, would change from cefepime to levofloxacin for bacterial neutropenic ppx to continue while ANC <500. Recommendations: - Can continue cefepime - Stop caspofungin now that patient on voriconazole - If fevers resolve and patient discharges, would change to prophylactic levofloxacin 500 mg PO daily (antibacterial), and would continue prophylactic abx while ANC remains <500: - Continue valacyclovir 500 mg PO BID (antiviral ppx) - Continue voriconazole 6 mg/kg PO q12h x 2 doses loading dose, followed by 4 mg/kg PO q12h for maintenance. ---- while on voriconazole, monitor with weekly LFTs ---- repeat trough 5-7 days after start of therapy - F/u BMBx - F/u: quantiferon, Histo UrAg, [id number], Aspergillus Ag, CMV serum PCR, serum CrAg - F/u BCx from 08/14 until finalized to ensure negative - If fevers and cough recur, would obtain repeat CT chest - Ensure close follow up with primary care and hematology (if within [facility]) after discharge ID will continue to follow. Orquidea Brewer MD, S Infectious Diseases [facility]/ID Connect ID Connect direct line: [phone] Admission and Anticipated Discharge Date Admission Date: August 10, 2024 Subjective This patient recommendation is based on a telemedicine consult request which was completed asynchronously through chart review and information provided by the primary physician. The patient was not seen or examined today. The evaluation is consultative in nature and all patient care and treatment decisions can either be accepted or rejected by the patient's primary hospital-based treating physician using their own independent medical judgment for their patient. Time Spent Reviewing Chart: 31+ minutes PLEASE NOTE: E-consult was performed for this visit given limited telepresenter availability today. - Afebrile, WBC 1.62 (ANC 160) - Pt now amenable to BMBx, awaiting this test Results & Data Vital Signs (Past 12 Hours) Vital Signs Temp Pulse Resp BP Pulse Ox O2 Del Method 08/16/24 11:52 112 H 18 142/77 H 95 Room Air 08/16/24 11:00 106 H 18 118/72 97 Room Air 08/16/24 10:12 109 H 18 123/74 94 Room Air 08/16/24 09:45 37.1 C 119 H 18 152/82 H 94 Room Air 08/16/24 07:31 Room Air 08/16/24 07:14 36.7 C 104 H 18 153/77 H 97 Room Air Diagnostic Findings Diagnostics: 08/14 CT A/P with contrast 1. New small bilateral pleural effusions and bilateral lower lobe atelectasis 2. Small hyperdense right renal lesion, indeterminate in nature but likely a benign proteinaceous or hemorrhagic cyst 3. Left inguinal hernia into which colon protrudes. There is no associated obstruction or strangulation 4. Mildly enlarged prostate 5. Extensive coronary atherosclerosis 08/13 CT sinus Mild chronic bilateral maxillary sinus thickening. 08/10 CTA Chest 1. No pulmonary emboli identified. 2. No acute intrathoracic findings. 3. Mild cardiomegaly and mild dilatation of the central pulmonary arteries which raises the possibility of pulmonary arterial hypertension. 4. Emphysema. Micro Data: 08/14 BCx x2: PEND 08/14 BCx x2: NGTD 08/14 sputum Cx: light nl tanner; g/s with GPRs, yeast, GNRs 08/14 quantiferon: neg 08/14 Aspergillus Ag: PEND 08/14 [id number]: PEND 08/14 HIV: neg 08/14 Histo UrAg: neg 08/14 HCV Ab: neg 08/14 hep B core total Ab: neg; HbsAb neg; HbsAg neg 08/14 CMV serum quant PCR: PEND 08/14 serum CrAg: PEND 08/10 BCx x2: NG 08/10 MRSA nares: neg 08/10 respiratory pathogen panel: neg Prior micro 04/05/24 sputum: Betty albicans 04/05/24 BCx x2: NG Antibiotic Summary: Cefepime (08/10 present) Valacyclovir (08/15 present) Voriconazole (08/15 present) prior Caspofungin (08/13 08/16)
--- NOTE | 2024-08-16 15:10 | Discharge Summary ---
Date of Service August 16, 2024 Admission HPI Per Admitting Provider Silvia Kaiser is a 73 year old male assisted inmate who presents to the ER with fever and hypoxia. He was seen yesterday in the ER following a syncopal episode while in the kitchen he became hot and lost consciousness. He returned back to the assisted and on evaluation today was found to be febrile, tachycardic and hypoxic therefore sent back to the ER. The patient reports having a mild cough on and off for the last week with productive white sputum and a "head cold" with nasal congestion and post nasal drip. He reports being told he had a fever at the [facility] although is afebrile currently in the ER. Otherwise no sinus pain, chest pain, abdominal pain, nausea, vomiting, diarrhea, urinary symptoms, confusion, neck pain or headache. Admission Exam Per Admitting Provider Constitutional: well developed; + not well nourished and no acute distress Eyes: PERRL, conjunctivae normal, anicteric sclerae ENMT: external ear and nose normal, oropharynx normal Respiratory: normal respiratory effort, lungs clear to auscultation Cardiovascular: RRR, no murmur, no edema Gastrointestinal (Abdomen): normal bowel sounds, soft, nontender, no hepatosplenomegaly Musculoskeletal: no cyanosis or clubbing, extremities motor strength 5/5 Skin: no rashes, warm and dry Neurologic: moves all extremities and awake; not confused Psychiatric: A+Ox3, euthymic affect Principal Diagnosis Acute myeloblastic leukemia Neutropenic fever Discharge Exam General: Awake, conversant Heart: S1, S2/regular rate and rhythm, no murmur rubs or gallops Lungs: Clear to auscultation bilaterally. Normal effort Abdomen: Soft/nontender/nondistended. No hepatosplenomegaly Extremities: No clubbing/cyanosis. No edema Behavior: Appropriate, cooperative Discharge Data Allergies Allergy/AdvReac Type Severity Reaction Status Date / Time erythromycin base Allergy Unknown Unknown Verified 08/10/24 15:21 pepper (genus Capsicum) AdvReac Unknown "OC Murray" Verified 08/10/24 15:21 -- use of OC spray is contraindicated Consultations 08/14/24 07:30 Consult Infectious Diseases Routine 08/14/24 09:03 Consult Hematology Routine Ordered Studies Chest CTA 08/10/24 12:18 CT ANGIOGRAPHY OF THE CHEST, PULMONARY EMBOLUS PROTOCOL CLINICAL HISTORY: Dyspnea; syncope COMPARISON STUDY: Chest CT April 14, 2024. TECHNIQUE: Following IV administration of 119 mL of Optiray, helical axial images of the chest were obtained utilizing the pulmonary embolus protocol. Maximal intensity projections and sagittal and coronal reformats were viewed on an independent 3D workstation. IV contrast was administered without complication. Automated exposure control was utilized for the study. A dose lowering technique was utilized adhering to the principles of ALARA. CT DOSE: 656.12 mGy.cm FINDINGS: No pulmonary emboli are identified. There is mild dilatation of the central pulmonary arteries. There is no thoracic aortic dissection. The heart is mildly enlarged and there is moderate coronary artery calcification. No pneumothorax or pleural effusion is present. Left lower lobe pneumonia on CT of April 14, 2024 has resolved. Minimal left lower lobe opacity favors atelectasis. Mediastinal and hilar adenopathy has improved. There is mild emphysema. No acute fractures within the visualized bony thorax are present. IMPRESSION: 1. No pulmonary emboli identified. 2. No acute intrathoracic findings. 3. Mild cardiomegaly and mild dilatation of the central pulmonary arteries which raises the possibility of pulmonary arterial hypertension. 4. Emphysema. ACT 112: Negative or not required by law. Electronically signed by: Edinson Burch M.D. 08/10/2024 1:48 PM Chest X-Ray 08/10/24 12:18 XR chest 1V portable CLINICAL HISTORY: Dyspnea COMPARISON STUDY: Chest CT April 04, 2024. Chest radiograph August 09, 2024. FINDINGS: Linear bibasilar densities suggest atelectasis. There is no pneumothorax or pleural effusion. Cardiac size is stable. Mediastinal contours are normal. There is no evidence for pulmonary edema. IMPRESSION: No acute cardiopulmonary findings. ACT 112: Negative or not required by law. Electronically signed by: Edinson Burch M.D. 08/10/2024 1:[address] 08/13/24 10:59 EXAM: CT Maxillofacial Without Intravenous Contrast INDICATION: Neutropenic fever TECHNIQUE: Axial computed tomography images of the face without intravenous contrast. Sagittal and coronal reformatted images were created and reviewed. This CT exam was performed using one or more of the following dose reduction techniques: automated exposure control, adjustment of the mA and/or kV according to patient size, and/or use of iterative reconstruction technique. COMPARISON: No relevant prior studies available. FINDINGS: Bones/joints: No acute changes. Soft tissues: No significant abnormality noted. Orbits: No abnormality noted. Sinuses: Mild chronic bilateral maxillary sinus thickening noted right greater than left. Maximal thickness left floor 7 mm in the right 5 mm. IMPRESSION: Mild chronic bilateral maxillary sinus thickening. ACT 112: Negative or not required by law. Electronically signed by Ting Quiroz 08-13-2024 2:30 PM Abdomen/Pelvis CT 08/14/24 09:13 Clinical History: Neutropenic fever Technique: Axial computed tomography images were obtained of the abdomen and pelvis without intravenous contrast. Comparison is made to the chest CT dated 08/10/2024 Findings: The liver is overall of normal size, attenuation, and contour with no sign of cirrhosis or significant fatty infiltration. No definite liver mass lesion is seen on this noncontrast study. The gallbladder appears unremarkable. No bile duct dilatation is noted. The spleen is of normal size. No focal splenic lesion is evident. The pancreas appears normal with no sign of acute or chronic pancreatitis and no mass lesion noted. The pancreatic duct is of normal caliber. The adrenal glands appear unremarkable. No renal or proximal ureteral calculi are seen. There is no hydronephrosis. There is mild bilateral perinephric stranding that could be chronic in nature. There is a 9 mm high attenuation rounded lesion in the mid right kidney The aorta is of normal caliber. No abdominal adenopathy is seen. The stomach appears normal. There is no sign of small bowel obstruction. There is a moderate sized left inguinal hernia into which the junction of the descending and sigmoid colon protrudes. No free intraperitoneal fluid or air is identified. No distal ureteral or bladder calculi are seen. No obvious bladder mass lesion is evident. The iliac arteries are of normal caliber. No pelvic adenopathy is noted. The prostate is mildly enlarged measuring 4.3 cm There are new small bilateral pleural effusions. There is bilateral lower lobe atelectasis. There is extensive coronary atherosclerosis Lumbar degenerative disc disease is seen. No fracture is identified. No focal osseous lesion is seen Impression: 1. New small bilateral pleural effusions and bilateral lower lobe atelectasis 2. Small hyperdense right renal lesion, indeterminate in nature but likely a benign proteinaceous or hemorrhagic cyst 3. Left inguinal hernia into which colon protrudes. There is no associated obstruction or strangulation 4. Mildly enlarged prostate 5. Extensive coronary atherosclerosis Electronically signed by Tristian Mueller 08-14-2024 13:22 PM Bone Marrow Biopsy w/ CT 08/16/24 09:00 CT-guided bone marrow biopsy INDICATION: Pancytopenia PROCEDURE: Procedure and risks were explained. Informed consent was obtained. A final timeout was completed. The patient was placed prone on the CT exam table. The left gluteal region was prepped and draped in sterile fashion. 1% lidocaine was utilized for skin anesthesia. Utilizing CT guidance, an 11-gauge bone biopsy needle was advanced into the left iliac bone. Multiple aspirates and one bone core was obtained and given to the lab. The needle was removed and Band-Aid applied. The patient tolerated the procedure well. Vital signs will be monitored on the floor. IMPRESSION: Bone marrow biopsy as above. Performed, dictated, and signed by Donald Caldwell PA-C; to be co-signed by Dr. Edinson Burch. Electronically signed by: Edinson Burch M.D. 08/16/2024 3:30 PM 08/10/24 12:18 CT angio chest PE protocol Stat 08/13/24 10:59 CT sinus wo con Routine 08/14/24 09:13 CT Abd and Pelvis [CT abd pelvis wo con] Routine 08/16/24 09:00 IR bone marrow bx & asp Routine Hospital Course (1) Neutropenic fever: Empiric cefepime. No source identified. Urinalysis negative No fevers from 08/15 Blood cultures so far negative. Still neutropenic Neutropenic isolation precautions. Added IV caspofungin since still spiking fevers. But currently on voriconazole CT sinuses unremarkable CT chest was negative this hospitalization CT abdomen negative Infectious disease on board If fevers resolved, ID recommends prophylactic levofloxacin 500 mg p.o. daily. Valtrex 500 p.o. twice daily started for antiviral prophylaxis Voriconazole for antifungal prophylaxis will be started per ID recommendations as well (2) Pancytopenia: Patient had been refusing a bone marrow biopsy but finally agreed. 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 Chu at [facility] (3) Hypomagnesemia: Replaced (4) Acute kidney injury: Resolved with hydration Avoid nephrotoxic medications Monitor BMP Plan VTE Prophylaxis - chemical deferred pending serial platelet measurements Diet - regular Total Time Total Time Spent Total Time Spent (In Minutes): 35 Discharge Plan Discharge Items Patient Disposition: Transfer Acute Care Hospital Reason For Visit: NEUTROPENIC FEVER Discharge Diagnosis: Acute myeloblastic leukemia Neutropenic fever Activity: As commented below Activity Comment: Bedrest Non-emergency contact: Primary Care Provider Call non-emergency contact if: you have any medication questions and your symptoms worsen Follow-up/Referrals: Dahiana NATION [Primary Care Provider] - Diet: Regular Addtl Attending Provider Instructions: Advised to note that you are being transferred to [facility] for escalation of care. You will need treatment for leukemia Pending Studies at Discharge: Yes Studies:: Bone marrow biopsy official report Stand-Alone Forms: My [facility] Skilled Items Patient informed of condition?: Yes DNR: No Discharge Level of Care: Other Communicable Disease: No Discharge Prognosis: Stable Lines: None Urinary Catheter: No Medications and DC Order Prescriptions: New valacyclovir 500 mg Tablet 500 mg PO BID 30 Days Qty: 60 0RF voriconazole [Vfend] 200 mg Tablet 100 mg PO Q12H 30 Days Qty: 30 0RF voriconazole [Vfend] 200 mg Tablet 200 mg PO Q12H 30 Days Qty: 60 0RF Continued albuterol sulfate 90 mcg/actuation Hfa Aerosol Inhaler 2 puff INHALATION QID PRN (Reason: Shortness Of Breath) Alvesco 160 mcg/actuation Hfa Aerosol Inhaler 1 puff INHALATION BID cyanocobalamin (vitamin B-12) [Vitamin B-12] 500 mcg Tablet 500 mcg PO DAILY lisinopril 10 mg Tablet 10 mg PO DAILY rosuvastatin 10 mg Tablet 10 mg PO DAILY Discharge Orders: Discharge Order (Routine); Ordered 08/16/24 Ordered By: Antony Araujo Admission Data Admit Date/Time: 08/10/24 15:34 Attending Provider: Antony Araujo Admit Provider: Ethan Dawn Primary Care Provider: Dahiana NATION Other Providers: Marilee Kay; Natasha Epperson
[2024-08-16 17:57] LABS: Cryptococcal Antigen Not Detected (Not Detected); Source Serum
[2024-08-16] MEDS ORDERED: VORICONAZOLE 200 MG TABLET PO SCH (20:00)
[2024-08-16] MEDS: VORICONAZOLE 200 MG TABLET PO SCH ×2 (20:02→20:03)
[2024-08-16 20:09] VITALS: RESP 16
[2024-08-16 20:17] LABS: CMV DNA Qnt Real Time PCR Not Detected; CMV DNA Quant PCR Not Detected log IU/mL
[2024-08-16 22:20] VITALS: BP 138/71; PULSE 98; TEMP 99.5; O2SAT 97
[2024-08-17 18:48] LABS: Aspergillus Ag Index 0.02 (<0.50); Aspergillus Antigen, Serum Not Detected (Not Detected); Fungitell (1-3)-B-D-Glucan <31 pg/mL
== END 2024-08-16 23:12 | disposition short-term general hospital (02) | DRG 835 ==
LOC: ED 12:04 → 3E 15:34 → SUATTDRO 15:34 → 3E 17:50